=== PATIENT | male | born 1970 | race African-American/Black ===

== ENCOUNTER 2016-12-30 14:39 | Inpatient (IN) | payer OTHER ==
[~2016-12-30] VITALS: Ht 175.3 cm; Wt 79.2 kg
[~2016-12-30 14:39] MED LIST: AMLO10TA4; ASPI-1079; FLUT1DIS3 INH; HYDR25TA; LAMO25TA4 PO; OMEP20CA4; PHEN100C4 PO
[2016-12-30] MEDS ORDERED: IPRATROPIUM BROMIDE (0.02%) 0.5MG/2.5ML NEB HHN STA (15:34)
[2016-12-30] MEDS ORDERED: ALBUTEROL (0.083%) 2.5MG/3ML NEB HHN STA (15:34)
[2016-12-30] MEDS ORDERED: KETOROLAC 30MG/ML VIAL IV STA (15:34)
[2016-12-30] MEDS ORDERED: METHYLPREDNISOLONE SOD SUCC 125 MG/2 ML VIAL IV STA (15:34)
[2016-12-30 16:03] LABS: CHLORIDE 110 mEq/L (98-107)
[2016-12-30 16:05] LABS: INR 1.1
[2016-12-30 16:07] LABS: MEAN CORPUSCULAR HEMOGLOBIN 20.7 pg (28.0-32.0); MEAN CORPUSCULAR VOLUME 69.2 fL (80.0-94.0); PLATELET 258 x1000/uL (130-400); RED CELL DISTRIBUTION WIDTH 20.4 % (11.6-14.6)
[2016-12-30 16:10] LABS: CARBON DIOXIDE 28 mEq/L (21-32)
[2016-12-30 16:15] LABS: HEMATOCRIT. 18.7 % (42.0-52.0); HEMOGLOBIN. 5.6 g/dL (14.0-18.0)
[2016-12-30 17:11] LABS: NUCLEATED RED BLOOD CELLS 1 /100 WBC; PLATELET ESTIMATE NORMAL
[2016-12-30] MEDS ORDERED: ONDANSETRON HCL 4MG/2ML VIAL IV PRN (17:45)
[2016-12-30] MEDS ORDERED: PANTOPRAZOLE 80 MG in SODIUM CHLORIDE 0.9% 100 ML IV SCH (17:45)
[2016-12-30] MEDS ORDERED: DOCUSATE SODIUM 100MG CAPSULE PO PRN (17:45)
[2016-12-30] MEDS ORDERED: LORAZEPAM 2MG/ML CPJ IV PRN (17:45)
[2016-12-30] MEDS ORDERED: IPRATROPIUM/ALBUTEROL 0.5-3(2.5)MG/3ML NEB INH PRN (17:45)
[2016-12-30] MEDS ORDERED: MAGNESIUM/ALUMINUM HYDROXIDE/SIMETHICONE 30ML UDC PO PRN (17:45)
[2016-12-30] MEDS ORDERED: ACETAMINOPHEN 325MG TABLET PO PRN (17:45)
[2016-12-30] MEDS ORDERED: POTASSIUM CHLORIDE 20MEQ TABLET SR PO NR (18:00)
[2016-12-30 18:26] LABS: CHLORIDE 110 mEq/L (98-107)
[2016-12-30 18:28] LABS: BG BASE EXCESS 1.1 mmol/L (-2.0-2.0); BG CARBOXYHEMOGLOBIN 1.6 % (0.5-1.5); BG DEOXYHEMOGLOBIN 5.8 % (0.0-5.0); BG HCO3 ACT 25.8 mmol/L (22.0-26.0); BG METHEMOGLOBIN 0.5 % (0.0-1.5); BG OXYGEN SATURATION 94.1 % (92.0-98.5); BG OXYHEMOGLOBIN 92.1 % (94.0-97.0); BG PCO2 41.9 mmHg (35.0-45.0); BG PH 7.408 (7.350-7.450); BG SAMPLE SITE RIGHT RADIAL; BG TOTAL HEMOGLOBIN 6.3 g/dL (12.0-18.0); BG VENT MODE NASAL CANNULA
[2016-12-30 18:32] LABS: CARBON DIOXIDE 28 mEq/L (21-32); TOTAL IRON BINDING CAPACITY 412 ug/dL (250-450)
[2016-12-30 18:33] LABS: CLARITY URINE CLEAR (CLEAR); COLOR URINE YELLOW (YELLOW); GLUCOSE URINE NEGATIVE (NEGATIVE); KETONES URINE NEGATIVE (NEGATIVE); LEUKOCYTE ESTERASE URINE NEGATIVE (NEGATIVE); NITRITE URINE NEGATIVE (NEGATIVE); OCCULT BLOOD URINE NEGATIVE (NEGATIVE); PH URINE 5.5 (4.5-8.0); PROTEIN URINE NEGATIVE (NEGATIVE); SPECIFIC GRAVITY URINE 1.011 (1.005-1.030); UROBILINOGEN URINE 0.2 E.U./dL (0.2-1.0)
[2016-12-30 18:44] LABS: *AMPHETAMINES SCREEN URINE NEGATIVE (NEGATIVE); *BARBITURATES SCREEN URINE NEGATIVE (NEGATIVE); *BENZODIAZEPINES SCREEN URINE NEGATIVE (NEGATIVE); *COCAINE SCREEN URINE NEGATIVE (NEGATIVE); CANNABINOID URINE SCREEN NEGATIVE (NEGATIVE); METHADONE URINE SCREEN NEGATIVE (NEGATIVE); OPIATES URINE SCREEN NEGATIVE (NEGATIVE); PHENCYCLIDINE URINE SCREEN NEGATIVE (NEGATIVE)
[2016-12-30] MEDS: CLONIDINE 0.1MG TABLET PO PRN (19:41)
[2016-12-30] MEDS ORDERED: ALBUTEROL (0.5%) 2.5MG/0.5ML NEB HHN ONE (21:01)
[2016-12-30] MEDS ORDERED: IPRATROPIUM BROMIDE (0.02%) 0.5MG/2.5ML NEB ONE (21:01)
[2016-12-30] MEDS: PANTOPRAZOLE 80 MG in SODIUM CHLORIDE 0.9% 100 ML IV SCH (21:43)
[2016-12-30 23:13] VITALS: BP 172/107
[2016-12-30] MEDS ORDERED: FERR-63 PO (23:41)
[2016-12-30] MEDS ORDERED: TRAM50TA3 PO (23:42)
[2016-12-30] MEDS ORDERED: TRAMADOL 50MG TABLET PO PRN (23:45)
[2016-12-31] VITALS (23 sets, daily range): BP systolic 147–194; BP diastolic 82–107
[2016-12-31] MEDS: AMLODIPINE 10MG TABLET PO SCH ×2 (00:36→09:00)
[2016-12-31] MEDS: HYDROCHLOROTHIAZIDE 25MG TABLET PO SCH ×2 (00:36→09:00)
[2016-12-31] MEDS: METHYLPREDNISOLONE SOD SUCC 40 MG/ML VIAL IV SCH ×3 (00:36→16:42)
[2016-12-31] MEDS: CLONIDINE 0.1MG TABLET PO PRN (02:14)
[2016-12-31 06:40] LABS: HEMATOCRIT 24.1 % (42.0-52.0); HEMOGLOBIN 7.5 g/dL (14.0-18.0)
[2016-12-31 07:12] LABS: CREATINE KINASE 123 IU/L (39-308); HDL CHOLESTEROL 95 mg/dL (40-59); LDL CHOLESTEROL 41 mg/dL (5-100); TROPONIN I < 0.02 ng/mL (0.00-0.04)
[2016-12-31] MEDS: ALBUTEROL (0.083%) 2.5MG/3ML NEB HHN SCH ×2 (08:28→13:53)
[2016-12-31] MEDS: BUDESONIDE 0.5MG/2ML NEB HHN SCH (08:28)
[2016-12-31] MEDS: LAMOTRIGINE 25MG TABLET PO SCH (08:59)
[2016-12-31] MEDS ORDERED: MEDICATION NOT ON FORMULARY EA (Fluticasone/Salmeterol (Advair 250-50 Diskus) 1 PUFF) INH SCH (09:00)
[2016-12-31] MEDS ORDERED: FERROUS SULFATE 325MG TABLET PO SCH (09:00)
[2016-12-31] MEDS: PANTOPRAZOLE 80 MG in SODIUM CHLORIDE 0.9% 100 ML IV SCH (09:52)
[2016-12-31] MEDS ORDERED: SORBITOL 70% SOLN 30ML PO SCH ×2 (16:00→20:00)
[2016-12-31] MEDS ORDERED: BISACODYL 5MG TABLET PO SCH ×2 (16:00→20:00)
[2016-12-31] MEDS: FERROUS SULFATE 325MG TABLET PO SCH ×2 (16:42→17:50)
[2016-12-31] MEDS: ASCORBIC ACID 500 MG TABLET PO SCH ×2 (16:42→20:17)
[2016-12-31] MEDS ORDERED: POTASSIUM CHLORIDE 20MEQ TABLET SR PO NR (20:00)
[2016-12-31] MEDS: PANTOPRAZOLE SODIUM 40 MG/VIAL IV SCH (20:15)
[2016-12-31] MEDS: PHENYTOIN SODIUM EXTENDED 100MG CAPSULE PO SCH (20:16)
[2016-12-31 20:28] LABS: HEMATOCRIT 26.3 % (42.0-52.0); HEMOGLOBIN 8.3 g/dL (14.0-18.0)
[2016-12-31 20:52] LABS: CREATINE KINASE MB FRACTION 2.4 ng/mL (0.5-3.6); TROPONIN I 0.06 ng/mL (0.00-0.04)
[2017-01-01] VITALS (17 sets, daily range): BP systolic 114–170; BP diastolic 9–121
[2017-01-01 00:16] LABS: HEMATOCRIT 27.1 % (42.0-52.0); HEMOGLOBIN 8.4 g/dL (14.0-18.0)
[2017-01-01] MEDS: METHYLPREDNISOLONE SOD SUCC 40 MG/ML VIAL IV SCH ×3 (00:23→17:49)
[2017-01-01] MEDS: CLONIDINE 0.1MG TABLET PO PRN ×2 (00:32→05:44)
[2017-01-01] MEDS: ALBUTEROL (0.083%) 2.5MG/3ML NEB HHN SCH ×4 (02:23→19:59)
[2017-01-01] MEDS ORDERED: SORBITOL 70% SOLN 30ML PO SCH (06:00)
[2017-01-01 06:36] LABS: INR 1.1; PARTIAL THROMBOPLASTIN TIME 27.7 sec (24.0-34.0); PROTHROMBIN TIME 11.3 sec
[2017-01-01 06:56] LABS: HEMATOCRIT. 30.3 % (42.0-52.0); HEMOGLOBIN. 9.5 g/dL (14.0-18.0); MEAN CORPUSCULAR HEMOGLOBIN 23.8 pg (28.0-32.0); MEAN CORPUSCULAR VOLUME 75.5 fL (80.0-94.0); MEAN PLATELET VOLUME 8.6 fl (7.4-10.4); PLATELET 224 x1000/uL (130-400); RED BLOOD CELL COUNT 4.01 mill/uL (4.7-6.1); RED CELL DISTRIBUTION WIDTH 23.2 % (11.6-14.6)
[2017-01-01] MEDS ORDERED: BACTERIOSTATIC SODIUM CHLORIDE 0.9% 30ML VIAL IJ ONE (09:42)
[2017-01-01] MEDS: BUDESONIDE 0.5MG/2ML NEB HHN SCH ×2 (09:59→20:00)
[2017-01-01] MEDS: ASCORBIC ACID 500 MG TABLET PO SCH ×2 (10:06→20:35)
[2017-01-01] MEDS: HYDROCHLOROTHIAZIDE 25MG TABLET PO SCH (10:06)
[2017-01-01] MEDS: PANTOPRAZOLE SODIUM 40 MG/VIAL IV SCH ×2 (10:06→20:35)
[2017-01-01] MEDS: AMLODIPINE 10MG TABLET PO SCH (10:07)
[2017-01-01] MEDS: LAMOTRIGINE 25MG TABLET PO SCH (10:11)
[2017-01-01 10:44] LABS: NUCLEATED RED BLOOD CELLS 1 /100 WBC; PLATELET ESTIMATE NORMAL
[2017-01-01] MEDS ORDERED: SIMETHICONE 40 MG/0.6 ML 30ML ONE (15:23)
[2017-01-01] MEDS ORDERED: MIDAZOLAM HCL 5 MG/5 ML VIAL ONE (15:24)
[2017-01-01] MEDS ORDERED: FENTANYL CITRATE/PF 50MCG/ML 2ML VIAL ONE (15:24)
[2017-01-01] MEDS ORDERED: FENTANYL CITRATE/PF 50MCG/ML 2ML VIAL IV PRN (15:27)
[2017-01-01] MEDS ORDERED: MIDAZOLAM HCL 5 MG/5 ML VIAL IV PRN (15:27)
[2017-01-01] MEDS ORDERED: DIPHENHYDRAMINE 50MG/ML VIAL ONE (16:25)
[2017-01-01] MEDS: FERROUS SULFATE 325MG TABLET PO SCH (19:10)
[2017-01-01] MEDS: PHENYTOIN SODIUM EXTENDED 100MG CAPSULE PO SCH (20:35)
[2017-01-02] VITALS (11 sets, daily range): BP systolic 134–171; BP diastolic 70–101
[2017-01-02] MEDS: ALBUTEROL (0.083%) 2.5MG/3ML NEB HHN SCH ×3 (01:53→13:54)
[2017-01-02] MEDS: CLONIDINE 0.1MG TABLET PO PRN (06:02)
[2017-01-02 06:58] LABS: HEMATOCRIT. 29.6 % (42.0-52.0); HEMOGLOBIN. 9.3 g/dL (14.0-18.0); MEAN CORPUSCULAR HEMOGLOBIN 23.8 pg (28.0-32.0); MEAN CORPUSCULAR VOLUME 75.6 fL (80.0-94.0); MEAN PLATELET VOLUME 9.2 fl (7.4-10.4); PLATELET 206 x1000/uL (130-400); RED BLOOD CELL COUNT 3.91 mill/uL (4.7-6.1); RED CELL DISTRIBUTION WIDTH 23.6 % (11.6-14.6)
[2017-01-02 07:20] LABS: CARBON DIOXIDE 27 mEq/L (21-32); CHLORIDE 105 mEq/L (98-107)
[2017-01-02] MEDS: BUDESONIDE 0.5MG/2ML NEB HHN SCH (08:07)
[2017-01-02] MEDS: PANTOPRAZOLE SODIUM 40 MG/VIAL IV SCH (08:17)
[2017-01-02] MEDS: ASCORBIC ACID 500 MG TABLET PO SCH (08:18)
[2017-01-02] MEDS: FERROUS SULFATE 325MG TABLET PO SCH ×2 (08:18→13:38)
[2017-01-02] MEDS: LAMOTRIGINE 25MG TABLET PO SCH (08:19)
[2017-01-02] MEDS: AMLODIPINE 10MG TABLET PO SCH (08:19)
[2017-01-02] MEDS: HYDROCHLOROTHIAZIDE 25MG TABLET PO SCH (08:19)
[2017-01-02] MEDS ORDERED: FS300 PO (13:57)
[2017-01-02] MEDS ORDERED: ASCO500T20 PO (13:57)
[2017-01-02 16:06] LABS: PLATELET ESTIMATE NORMAL
== END 2017-01-02 17:20 | disposition home or self-care (01) | DRG 663 ==
LOC: ER 15:01 → 5EST 18:26 → EDBEDREQSVC 20:36 → ENRESERV 21:35
PROVIDERS: ADMIT Internal Medicine; ATTEND Internal Medicine
PROC: 30233N1 Transfusion of Nonautologous Red Blood Cells into Peripheral Vein, Percutaneous Approach (ICD-10-PCS; 2016-12-30)
PROC: 0DB68ZX Excision of Stomach, Via Natural or Artificial Opening Endoscopic, Diagnostic (ICD-10-PCS; 2017-01-01)
PROC: 0DBP8ZZ Excision of Rectum, Via Natural or Artificial Opening Endoscopic (ICD-10-PCS; principal; 2017-01-01 15:00)
DX: D50.9 Iron deficiency anemia, unspecified (principal); I11.9 Hypertensive heart disease without heart failure; J44.1 Chronic obstructive pulmonary disease with (acute) exacerbation; K29.70 Gastritis, unspecified, without bleeding; F10.10 Alcohol abuse, uncomplicated; D12.5 Benign neoplasm of sigmoid colon; F17.200 Nicotine dependence, unspecified, uncomplicated; K57.30 Diverticulosis of large intestine without perforation or abscess without bleeding; Q27.33 Arteriovenous malformation of digestive system vessel; Z79.51 Long term (current) use of inhaled steroids; Z79.899 Other long term (current) drug therapy
CPT/HCPCS: 36415; 36600; 71010; 76700; 80048; 80053; 80061; 80305; 81003; 82270; 82375; 82550; 82553; 82728; 82805; 83540; 83550; 83735; 84443; 84484; 85014; 85018; 85025; 85044; 85610; 85730; 86677; 86850; 86900; 86920; 88305; 88312; 88313; 93005; 93970; 94640; 96374; 96375; 99291; C9113; G0482; J1200; J1885; J2250; J2405; J2920; J2930; J3010; J3490; J7050; J7611; J7620; J7626; P9016

== ENCOUNTER 2017-12-07 01:37 | Emergency (ER) | payer OTHER ==
[~2017-12-07] VITALS: Ht 172.7 cm; Wt 73.0 kg
[~2017-12-07 01:37] MED LIST changes: -AMLO10TA4; +AMLO10TA4 PO; +ASCO500T20 PO; -ASPI-1079; +ASPI-1079 PO; +FERR325T23 PO; -FLUT1DIS3 INH; +MOME13HF2 INH; +OMEP20CA10 PO; -OMEP20CA4; +TRAM50TA3 PO
[2017-12-07 01:56] VITALS: BP 146/70
== END 2017-12-07 03:30 | disposition left against medical advice (07) ==
LOC: ER 01:37
DX: R53.1 Weakness (principal); Z53.21 Procedure and treatment not carried out due to patient leaving prior to being seen by health care provider

== ENCOUNTER 2019-02-03 14:28 | Inpatient (IN) | payer OTHER ==
[~2019-02-03] VITALS: Ht 175.3 cm; Wt 76.7 kg
[~2019-02-03 14:28] MED LIST changes: +ALBU18HF2 IH; -LAMO25TA4 PO; +LAMO25TA9 PO; -OMEP20CA10 PO; +OMEP20CA5 PO
[2019-02-03] MEDS ORDERED: SODIUM CHLORIDE 0.9% 1,000 ML IV ONE (15:22)
[2019-02-03 16:00] LABS: BASOPHILS % 2.5 % (0.0-2.0); EOSINOPHILS % 0.4 % (0.0-5.0); HEMATOCRIT. 23.1 % (42.0-52.0); LYMPHOCYTES % 8.1 % (20.0-50.0); MEAN CORPUSCULAR HEMOGLOBIN 21.6 pg (28.0-32.0); MEAN CORPUSCULAR VOLUME 72.6 fL (80.0-94.0); MEAN PLATELET VOLUME 8.3 fl (7.4-10.4); MONOCYTES % 13.5 % (2.0-8.0); NEUTROPHILS % 75.5 % (40.0-76.0); PLATELET 206 x1000/uL (130-400); RED BLOOD CELL COUNT 3.19 mill/uL (4.7-6.1); RED CELL DISTRIBUTION WIDTH 27.1 % (11.6-14.6)
[2019-02-03 16:03] LABS: CHLORIDE 106 mEq/L (98-107)
[2019-02-03 16:06] LABS: HEMOGLOBIN. 6.9 g/dL (14.0-18.0)
[2019-02-03 16:07] LABS: ETHANOL BLOOD 16 mg/dL
[2019-02-03 16:20] LABS: PLATELET ESTIMATE NORMAL
[2019-02-03] MEDS ORDERED: PHENYTOIN SODIUM EXTENDED 100MG CAPSULE PO ONE ×2 (17:00)
[2019-02-03 17:43] LABS: CLARITY URINE CLEAR (CLEAR); COLOR URINE YELLOW (YELLOW); KETONES URINE NEGATIVE (NEGATIVE); LEUKOCYTE ESTERASE URINE NEGATIVE (NEGATIVE); NITRITE URINE NEGATIVE (NEGATIVE); OCCULT BLOOD URINE NEGATIVE (NEGATIVE); PROTEIN URINE NEGATIVE (NEGATIVE); SPECIFIC GRAVITY URINE 1.015 (1.005-1.030)
[2019-02-03 17:50] LABS: *AMPHETAMINES SCREEN URINE NEGATIVE (NEGATIVE)
[2019-02-03 17:51] LABS: *BARBITURATES SCREEN URINE NEGATIVE (NEGATIVE); *BENZODIAZEPINES SCREEN URINE NEGATIVE (NEGATIVE); *COCAINE SCREEN URINE NEGATIVE (NEGATIVE); METHADONE URINE SCREEN NEGATIVE (NEGATIVE); OPIATES URINE SCREEN NEGATIVE (NEGATIVE); PHENCYCLIDINE URINE SCREEN NEGATIVE (NEGATIVE)
[2019-02-03 17:52] LABS: CANNABINOID URINE SCREEN NEGATIVE (NEGATIVE)
[2019-02-03 21:15] VITALS: BP 182/94
[2019-02-04] MEDS ORDERED: MORPHINE SULFATE 4 MG/ML CPJ (NOT FOR IM USE) IV PRN (00:45)
[2019-02-04] MEDS ORDERED: CLONIDINE 0.1MG TABLET PO PRN (00:45)
[2019-02-04] MEDS: IPRATROPIUM/ALBUTEROL 0.5-3(2.5)MG/3ML NEB HHN SCH ×5 (02:20→21:00)
[2019-02-04 04:00] VITALS: BP 170/91
[2019-02-04 08:00] VITALS: BP 148/88
[2019-02-04] MEDS: LAMOTRIGINE 25MG TABLET PO SCH (09:06)
[2019-02-04] MEDS: AMLODIPINE 10MG TABLET PO SCH (09:07)
[2019-02-04] MEDS: OMEPRAZOLE 20MG CAPSULE EXTENDED RELEASE PO SCH (09:07)
[2019-02-04] MEDS: LOSARTAN POTASSIUM 50 MG TABLET PO SCH (09:12)
[2019-02-04 10:20] LABS: BASOPHILS % 2.9 % (0.0-2.0); EOSINOPHILS % 1.1 % (0.0-5.0); HEMATOCRIT. 27.4 % (42.0-52.0); HEMOGLOBIN. 8.3 g/dL (14.0-18.0); LYMPHOCYTES % 21.4 % (20.0-50.0); MEAN CORPUSCULAR HEMOGLOBIN 22.3 pg (28.0-32.0); MEAN PLATELET VOLUME 8.8 fl (7.4-10.4); MONOCYTES % 11.4 % (2.0-8.0); NEUTROPHILS % 63.2 % (40.0-76.0); PLATELET 220 x1000/uL (130-400); RED CELL DISTRIBUTION WIDTH 27.3 % (11.6-14.6)
[2019-02-04 10:35] LABS: CHLORIDE 105 mEq/L (98-107)
[2019-02-04 10:51] LABS: TOTAL IRON BINDING CAPACITY 448 ug/dL (250-450)
[2019-02-04] MEDS ORDERED: LORAZEPAM 2MG/ML CPJ IV PRN (12:00)
[2019-02-04 12:10] VITALS: BP 148/88
[2019-02-04 16:23] VITALS: BP 124/82
[2019-02-04 20:00] VITALS: BP_SYST 133; BP_SYST 135; BP_SYST 139; BP_DIAS 85; BP_DIAS 86
[2019-02-04] MEDS ORDERED: PHENYTOIN SODIUM EXTENDED 100MG CAPSULE PO SCH (21:00)
[2019-02-05] VITALS: BP 133/81
[2019-02-05] MEDS: IPRATROPIUM/ALBUTEROL 0.5-3(2.5)MG/3ML NEB HHN SCH ×4 (00:09→12:00)
[2019-02-05 04:00] VITALS: BP 152/97
[2019-02-05 06:06] LABS: CHLORIDE 109 mEq/L (98-107)
[2019-02-05 06:25] LABS: HEMATOCRIT. 24.4 % (42.0-52.0); HEMOGLOBIN. 7.4 g/dL (14.0-18.0); MEAN CORPUSCULAR HEMOGLOBIN 22.3 pg (28.0-32.0); MEAN CORPUSCULAR VOLUME 73.8 fL (80.0-94.0); MEAN PLATELET VOLUME 8.7 fl (7.4-10.4); PLATELET 196 x1000/uL (130-400); RED BLOOD CELL COUNT 3.31 mill/uL (4.7-6.1); RED CELL DISTRIBUTION WIDTH 27.5 % (11.6-14.6)
[2019-02-05 08:11] VITALS: BP 150/88
[2019-02-05] MEDS: LOSARTAN POTASSIUM 50 MG TABLET PO SCH (08:18)
[2019-02-05] MEDS: LAMOTRIGINE 25MG TABLET PO SCH (08:18)
[2019-02-05] MEDS: AMLODIPINE 10MG TABLET PO SCH (08:19)
[2019-02-05] MEDS: OMEPRAZOLE 20MG CAPSULE EXTENDED RELEASE PO SCH (08:19)
[2019-02-05 12:21] VITALS: BP 138/82
[2019-02-05] MEDS ORDERED: FERROUS SULFATE 325MG TABLET PO SCH (12:50)
[2019-02-05 13:03] VITALS: BP 138/82
[2019-02-05 14:04] LABS: PLATELET ESTIMATE NORMAL
== END 2019-02-05 15:15 | disposition home or self-care (01) | DRG 48 ==
LOC: ER 14:28 → 6WST 17:10 → ENRESERV 19:50 → 6WST 02-04 06:39
PROVIDERS: ADMIT Internal Medicine; ATTEND Internal Medicine
PROC: 30233N1 Transfusion of Nonautologous Red Blood Cells into Peripheral Vein, Percutaneous Approach (ICD-10-PCS; principal; 2019-02-03)
DX: G90.8 Other disorders of autonomic nervous system (principal); I11.9 Hypertensive heart disease without heart failure; D64.9 Anemia, unspecified; F17.210 Nicotine dependence, cigarettes, uncomplicated; G40.909 Epilepsy, unspecified, not intractable, without status epilepticus; G43.909 Migraine, unspecified, not intractable, without status migrainosus; K27.9 Peptic ulcer, site unspecified, unspecified as acute or chronic, without hemorrhage or perforation; J44.9 Chronic obstructive pulmonary disease, unspecified; K80.20 Calculus of gallbladder without cholecystitis without obstruction; Z79.899 Other long term (current) drug therapy
CPT/HCPCS: 36415; 71045; 80048; 80185; 80305; 80320; 82270; 82728; 83540; 83550; 86850; 86900; 86920; 93005; 93306; 94640; 96360; 96361; 97162; 99291; J7030; J7050; J7620; P9016; G0480

== ENCOUNTER 2020-03-20 08:07 | Inpatient (IN) | payer OTHER ==
[~2020-03-20] VITALS: Ht 175.3 cm; Wt 68.9 kg
[~2020-03-20 08:07] MED LIST changes: -ASPI-1079 PO; +DOCU250C14 MT; +FERR325T6 MT; +FURO-152 MT; +HYDR100T26 MT; +IPRA3AMP9 NEB; +LEVO500T2 MT; +LOSA50TA3 PO; +MOME13HF INH; +OMEP20CA14 PO; -OMEP20CA5 PO; -TRAM50TA3 PO
[2020-03-20] MEDS ORDERED: PANTOPRAZOLE SODIUM 40 MG/VIAL IV STA (09:23)
[2020-03-20] MEDS ORDERED: SODIUM CHLORIDE 0.9% 1,000 ML IV ONE (09:23)
[2020-03-20 09:54] LABS: BASOPHILS % 1.7 % (0.0-2.0); EOSINOPHILS % 0.2 % (0.0-5.0); LYMPHOCYTES % 18.3 % (20.0-50.0); MEAN CORPUSCULAR HEMOGLOBIN 25.1 pg (28.0-32.0); MEAN CORPUSCULAR VOLUME 81.2 fL (80.0-94.0); MEAN PLATELET VOLUME 9.1 fl (7.4-10.4); MONOCYTES % 12.7 % (2.0-8.0); NEUTROPHILS % 67.1 % (40.0-76.0); PLATELET 129 x1000/uL (130-400); RED BLOOD CELL COUNT 1.91 mill/uL (4.7-6.1); RED CELL DISTRIBUTION WIDTH 22.6 % (11.6-14.6)
[2020-03-20 09:58] LABS: CHLORIDE 109 mEq/L (98-107)
[2020-03-20 10:02] LABS: HEMATOCRIT. 15.5 % (42.0-52.0); HEMOGLOBIN. 4.8 g/dL (14.0-18.0)
[2020-03-20 10:04] LABS: INR 1.3; PROTHROMBIN TIME 13.4 sec (9.6-11.0)
[2020-03-20 10:34] LABS: PLATELET ESTIMATE SLIGHTLY DECREASED
[2020-03-20] MEDS ORDERED: ACETAMINOPHEN 325MG TABLET PO PRN (12:00)
[2020-03-20] MEDS ORDERED: ONDANSETRON HCL 4MG/2ML INJ IV PRN (12:00)
[2020-03-20 12:01] LABS: CLARITY URINE CLEAR (CLEAR); COLOR URINE YELLOW (YELLOW); KETONES URINE NEGATIVE (NEGATIVE); LEUKOCYTE ESTERASE URINE NEGATIVE (NEGATIVE); NITRITE URINE NEGATIVE (NEGATIVE); OCCULT BLOOD URINE NEGATIVE (NEGATIVE); PROTEIN URINE 1+ (NEGATIVE); SPECIFIC GRAVITY URINE 1.016 (1.005-1.030)
[2020-03-20] MEDS: AMLODIPINE 10MG TABLET PO SCH (13:09)
[2020-03-20 14:42] LABS: MEAN CORPUSCULAR HEMOGLOBIN 26.6 pg (28.0-32.0); MEAN CORPUSCULAR VOLUME 81.8 fL (80.0-94.0); MEAN PLATELET VOLUME 8.5 fl (7.4-10.4); PLATELET 99 x1000/uL (130-400); RED BLOOD CELL COUNT 2.44 mill/uL (4.7-6.1); RED CELL DISTRIBUTION WIDTH 20.1 % (11.6-14.6)
[2020-03-20 14:46] LABS: CHLORIDE 110 mEq/L (98-107)
[2020-03-20 14:47] LABS: HEMOGLOBIN. 6.5 g/dL (14.0-18.0)
[2020-03-20 14:54] LABS: TOTAL IRON BINDING CAPACITY 279 ug/dL (250-450)
[2020-03-20 15:00] LABS: PLATELET ESTIMATE SLIGHTLY DECREASED
[2020-03-20 15:25] LABS: FOLIC ACID (FOLATE) SERUM 5.1 ng/mL (>5.38)
[2020-03-20] MEDS ORDERED: CLONIDINE 0.1MG TABLET PO PRN ×2 (15:30→22:15)
[2020-03-20 16:42] VITALS: BP 196/99
[2020-03-20 17:32] VITALS: BP 196/99
[2020-03-20] MEDS: LOSARTAN POTASSIUM 100 MG TABLET PO SCH (18:33)
[2020-03-20 21:08] VITALS: BP 183/102
[2020-03-20 21:22] LABS: HEMATOCRIT 24.2 % (42.0-52.0)
[2020-03-21] MEDS ORDERED: IPRATROPIUM/ALBUTEROL 0.5-3(2.5)MG/3ML NEB HHN PRN (01:45)
[2020-03-21 04:00] VITALS: BP 136/89
[2020-03-21] MEDS ORDERED: IPRATROPIUM/ALBUTEROL 0.5-3(2.5)MG/3ML NEB HHN SCH (04:00)
[2020-03-21 05:56] LABS: BASOPHILS % 1.2 % (0.0-2.0); EOSINOPHILS % 1.4 % (0.0-5.0); LYMPHOCYTES % 24.2 % (20.0-50.0); MEAN CORPUSCULAR VOLUME 83.1 fL (80.0-94.0); MONOCYTES % 12.3 % (2.0-8.0); NEUTROPHILS % 60.9 % (40.0-76.0); PLATELET 95 x1000/uL (130-400); RED CELL DISTRIBUTION WIDTH 20.1 % (11.6-14.6)
[2020-03-21 06:13] LABS: CHLORIDE 107 mEq/L (98-107)
[2020-03-21 06:33] LABS: HEMATOCRIT. 20.8 % (42.0-52.0)
[2020-03-21 08:00] VITALS: BP 152/85
[2020-03-21] MEDS ORDERED: POTASSIUM CHLORIDE 20MEQ TABLET SR PO SCH (08:30)
[2020-03-21] MEDS: FUROSEMIDE 40MG TABLET PO SCH (08:59)
[2020-03-21] MEDS: PANTOPRAZOLE SODIUM 40 MG/VIAL IV SCH (08:59)
[2020-03-21] MEDS: LOSARTAN POTASSIUM 100 MG TABLET PO SCH (09:00)
[2020-03-21] MEDS: AMLODIPINE 10MG TABLET PO SCH (09:00)
[2020-03-21 11:12] LABS: HEMATOCRIT 24.6 % (42.0-52.0); HEMOGLOBIN 8.2 g/dL (14.0-18.0)
[2020-03-21 12:00] VITALS: BP 130/87
[2020-03-21 16:00] VITALS: BP 130/87
[2020-03-21 20:00] VITALS: BP 146/90
[2020-03-22] VITALS: BP 156/94
[2020-03-22 04:00] VITALS: BP 153/93
[2020-03-22 08:00] VITALS: BP 142/94
[2020-03-22] MEDS: FUROSEMIDE 40MG TABLET PO SCH (09:00)
[2020-03-22 09:24] LABS: HEMATOCRIT 23.2 % (42.0-52.0); HEMOGLOBIN 7.8 g/dL (14.0-18.0)
[2020-03-22] MEDS: PANTOPRAZOLE SODIUM 40 MG/VIAL IV SCH (10:40)
[2020-03-22] MEDS: AMLODIPINE 10MG TABLET PO SCH (10:40)
[2020-03-22] MEDS: LOSARTAN POTASSIUM 100 MG TABLET PO SCH (10:40)
[2020-03-22 12:00] VITALS: BP 145/89
[2020-03-22 13:08] LABS: CHLORIDE 103 mEq/L (98-107)
[2020-03-22 13:15] LABS: BASOPHILS % 1.1 % (0.0-2.0); EOSINOPHILS % 2.2 % (0.0-5.0); MEAN CORPUSCULAR HEMOGLOBIN 27.6 pg (28.0-32.0); MEAN CORPUSCULAR VOLUME 83.7 fL (80.0-94.0); MEAN PLATELET VOLUME 8.9 fl (7.4-10.4); MONOCYTES % 11.8 % (2.0-8.0); NEUTROPHILS % 57.9 % (40.0-76.0); PLATELET 105 x1000/uL (130-400); RED BLOOD CELL COUNT 2.95 mill/uL (4.7-6.1); RED CELL DISTRIBUTION WIDTH 20.5 % (11.6-14.6)
[2020-03-22 13:17] LABS: PHOSPHORUS 2.2 mg/dL (2.5-4.9)
[2020-03-22 13:18] LABS: HEMATOCRIT. 24.7 % (42.0-52.0); HEMOGLOBIN. 8.1 g/dL (14.0-18.0)
[2020-03-22] MEDS ORDERED: POTASSIUM CHLORIDE 20MEQ TABLET SR PO NR (13:30)
== END 2020-03-22 14:15 | disposition short-term general hospital (02) | DRG 254 ==
LOC: ER 08:13 → 8WST 11:36 → EDBEDREQSVC 11:45 → EDBEDREQ 11:45 → EDBEDREQSVC 13:22 → ENRESERV 15:45
PROVIDERS: ADMIT Internal Medicine; ATTEND Internal Medicine
PROC: 30233N1 Transfusion of Nonautologous Red Blood Cells into Peripheral Vein, Percutaneous Approach (ICD-10-PCS; principal; 2020-03-20)
DX: K92.1 Melena (principal); I11.0 Hypertensive heart disease with heart failure; I50.33 Acute on chronic diastolic (congestive) heart failure; J44.9 Chronic obstructive pulmonary disease, unspecified; D61.818 Other pancytopenia; G40.909 Epilepsy, unspecified, not intractable, without status epilepticus; R74.0 Nonspecific elevation of levels of transaminase and lactic acid dehydrogenase [LDH]; F17.210 Nicotine dependence, cigarettes, uncomplicated; K76.0 Fatty (change of) liver, not elsewhere classified; Z87.19 Personal history of other diseases of the digestive system; Z79.2 Long term (current) use of antibiotics; Z79.899 Other long term (current) drug therapy; Z71.6 Tobacco abuse counseling; R65.10 Systemic inflammatory response syndrome (SIRS) of non-infectious origin without acute organ dysfunction; E43 Unspecified severe protein-calorie malnutrition
CPT/HCPCS: 36415; 71045; 76700; 80048; 80053; 81003; 82270; 82607; 82728; 82746; 83540; 83550; 83605; 83735; 84100; 84145; 84484; 85014; 85018; 85025; 86850; 86900; 86920; 93005; 94640; 99291; C9113; J7030; P9016

== ENCOUNTER 2021-02-14 18:15 | Inpatient (IN) | payer OTHER ==
[~2021-02-14] VITALS: Ht 175.3 cm; Wt 65.8 kg
[~2021-02-14 18:15] MED LIST changes: +FURO-151 MT; -HYDR25TA; -LEVO500T2 MT
[2021-02-14] MEDS ORDERED: ACETAMINOPHEN 325MG TABLET PO STA (18:54)
[2021-02-14] MEDS ORDERED: SODIUM CHLORIDE 0.9% 1,000 ML IV ONE (19:00)
[2021-02-14 19:30] LABS: MEAN CORPUSCULAR HEMOGLOBIN 18.1 pg (28.0-32.0); MEAN CORPUSCULAR VOLUME 62.1 fL (80.0-94.0); MEAN PLATELET VOLUME 7.5 fl (7.4-10.4); PLATELET 229 x1000/uL (130-400); RED BLOOD CELL COUNT 2.54 mill/uL (4.7-6.1); RED CELL DISTRIBUTION WIDTH 21.4 % (11.6-14.6)
[2021-02-14 19:39] LABS: CHLORIDE 104 mEq/L (98-107)
[2021-02-14 19:43] LABS: ETHANOL BLOOD 69 mg/dL
[2021-02-14 19:44] LABS: HEMATOCRIT. 15.7 % (42.0-52.0); HEMOGLOBIN. 4.6 g/dL (14.0-18.0)
[2021-02-14 20:14] LABS: PLATELET ESTIMATE NORMAL
[2021-02-14 20:52] LABS: CLARITY URINE CLEAR (CLEAR); COLOR URINE YELLOW (YELLOW); KETONES URINE TRACE (NEGATIVE); LEUKOCYTE ESTERASE URINE NEGATIVE (NEGATIVE); NITRITE URINE NEGATIVE (NEGATIVE); OCCULT BLOOD URINE NEGATIVE (NEGATIVE); PROTEIN URINE TRACE (NEGATIVE); SPECIFIC GRAVITY URINE 1.015 (1.005-1.030)
[2021-02-14 21:09] LABS: *AMPHETAMINES SCREEN URINE NEGATIVE (NEGATIVE); *BARBITURATES SCREEN URINE NEGATIVE (NEGATIVE); *BENZODIAZEPINES SCREEN URINE NEGATIVE (NEGATIVE); *COCAINE SCREEN URINE PRESUMTIVE POSITIVE (NEGATIVE)
[2021-02-14 21:10] LABS: CANNABINOID URINE SCREEN NEGATIVE (NEGATIVE); METHADONE URINE SCREEN NEGATIVE (NEGATIVE); OPIATES URINE SCREEN NEGATIVE (NEGATIVE); PHENCYCLIDINE URINE SCREEN NEGATIVE (NEGATIVE)
[2021-02-14] MEDS ORDERED: DIPHENHYDRAMINE 50MG/ML VIAL IV PRN (23:30)
[2021-02-14] MEDS ORDERED: ACETAMINOPHEN 325MG TABLET PO PRN ×2 (23:30)
[2021-02-14] MEDS ORDERED: GUAIFENESIN 200MG/10ML SUGAR FREE UDC PO PRN (23:30)
[2021-02-14] MEDS ORDERED: ZOLPIDEM TARTRATE 5MG TABLET PO PRN (23:30)
[2021-02-14] MEDS ORDERED: CLONIDINE 0.1MG TABLET PO PRN (23:30)
[2021-02-14] MEDS ORDERED: LORAZEPAM 2MG/ML CPJ IV PRN (23:30)
[2021-02-14] MEDS ORDERED: MAGNESIUM/ALUMINUM HYDROXIDE/SIMETHICONE 30ML UDC PO PRN (23:30)
[2021-02-14 23:57] LABS: TOTAL IRON BINDING CAPACITY 471 ug/dL (250-450)
[2021-02-15] MEDS: SODIUM CHLORIDE 0.9% 1,000 ML IV SCH ×2 (00:30→18:33)
[2021-02-15] MEDS: PHENYTOIN SODIUM EXTENDED 100MG CAPSULE PO SCH ×3 (07:01→21:32)
[2021-02-15] MEDS: OMEPRAZOLE 20MG CAPSULE EXTENDED RELEASE PO SCH ×2 (07:01→21:33)
[2021-02-15 07:18] LABS: MEAN CORPUSCULAR HEMOGLOBIN 20.5 pg (28.0-32.0); MEAN CORPUSCULAR VOLUME 67.1 fL (80.0-94.0); MEAN PLATELET VOLUME 8.5 fl (7.4-10.4); PLATELET 196 x1000/uL (130-400); RED BLOOD CELL COUNT 3.04 mill/uL (4.7-6.1); RED CELL DISTRIBUTION WIDTH 24.7 % (11.6-14.6)
[2021-02-15 07:42] LABS: HEMATOCRIT. 20.4 % (42.0-52.0)
[2021-02-15 07:43] LABS: HEMOGLOBIN. 6.2 g/dL (14.0-18.0)
[2021-02-15 10:00] VITALS: BP 160/80
[2021-02-15] MEDS: LAMOTRIGINE 25MG TABLET PO SCH (10:35)
[2021-02-15 10:40] LABS: PLATELET ESTIMATE NORMAL
[2021-02-15 12:17] LABS: HEMATOCRIT 25.3 % (42.0-52.0); HEMOGLOBIN 7.8 g/dL (14.0-18.0)
[2021-02-15] MEDS: IRON SUCROSE COMPLEX 100 MG/5 ML ML IV SCH (15:04)
[2021-02-15 20:00] VITALS: BP 168/81
[2021-02-15] MEDS: BUDESONIDE 0.5MG/2ML NEB HHN SCH (22:50)
[2021-02-15] MEDS: IPRATROPIUM/ALBUTEROL 0.5-3(2.5)MG/3ML NEB HHN PRN (22:50)
[2021-02-16] VITALS (8 sets, daily range): BP systolic 130–155; BP diastolic 72–89
[2021-02-16] MEDS: PHENYTOIN SODIUM EXTENDED 100MG CAPSULE PO SCH ×2 (06:23→14:24)
[2021-02-16] MEDS: OMEPRAZOLE 20MG CAPSULE EXTENDED RELEASE PO SCH (06:23)
[2021-02-16 07:29] LABS: HEMOGLOBIN 7.1 g/dL (14.0-18.0); MEAN CORPUSCULAR HEMOGLOBIN 21.3 pg (28.0-32.0); MEAN CORPUSCULAR VOLUME 69.4 fL (80.0-94.0); PLATELET 157 x1000/uL (130-400); RED BLOOD CELL COUNT 3.32 mill/uL (4.7-6.1); RED CELL DISTRIBUTION WIDTH 26.8 % (11.6-14.6)
[2021-02-16] MEDS: LAMOTRIGINE 25MG TABLET PO SCH (08:51)
[2021-02-16] MEDS: IRON SUCROSE COMPLEX 100 MG/5 ML ML IV SCH (08:51)
[2021-02-16] MEDS: IPRATROPIUM/ALBUTEROL 0.5-3(2.5)MG/3ML NEB HHN PRN (09:19)
[2021-02-16] MEDS: BUDESONIDE 0.5MG/2ML NEB HHN SCH (09:19)
[2021-02-16] MEDS: SODIUM CHLORIDE 0.9% 1,000 ML IV SCH (14:24)
[2021-02-16 16:44] LABS: HEMATOCRIT 27.8 % (42.0-52.0); HEMOGLOBIN 9.1 g/dL (14.0-18.0)
== END 2021-02-16 17:25 | disposition home or self-care (01) | DRG 663 ==
LOC: ER 18:15 → MICUSO 23:02 → 6EST 02-15 09:23
PROVIDERS: ADMIT Internal Medicine; ATTEND Internal Medicine
PROC: 30233N1 Transfusion of Nonautologous Red Blood Cells into Peripheral Vein, Percutaneous Approach (ICD-10-PCS; principal; 2021-02-14)
DX: D64.9 Anemia, unspecified (principal); G93.40 Encephalopathy, unspecified; G40.909 Epilepsy, unspecified, not intractable, without status epilepticus; I10 Essential (primary) hypertension; J44.9 Chronic obstructive pulmonary disease, unspecified; Z20.822 Contact with and (suspected) exposure to COVID-19; Z79.899 Other long term (current) drug therapy
CPT/HCPCS: 36415; 71045; 80053; 80305; 80320; 81003; 82962; 83540; 83550; 83880; 84484; 85014; 85018; 85025; 85027; 86850; 86900; 86920; 87426; 93005; 94640; 99291; J7030; J7040; J7626; P9016; G0480

== ENCOUNTER 2022-06-15 18:22 | Inpatient (IN) | payer MEDICAID, OTHER ==
[~2022-06-15] VITALS: Ht 175.3 cm; Wt 83.9 kg
[~2022-06-15 18:22] MED LIST changes: -FERR325T6 MT; -FURO-152 MT; -MOME13HF INH; +MOME13HF11 INH
[2022-06-15 20:03] LABS: MEAN CORPUSCULAR HEMOGLOBIN 20.1 pg (28.0-32.0); MEAN CORPUSCULAR VOLUME 71.9 fL (80.0-94.0); MEAN PLATELET VOLUME 9.4 fl (7.4-10.4); PLATELET 144 x1000/uL (130-400); RED BLOOD CELL COUNT 2.35 mill/uL (4.7-6.1); RED CELL DISTRIBUTION WIDTH 19.8 % (11.6-14.6)
[2022-06-15 20:11] LABS: INR 1.2; PROTHROMBIN TIME 12.9 sec (9.6-11.0)
[2022-06-15 20:14] LABS: HEMATOCRIT. 16.9 % (42.0-52.0); HEMOGLOBIN. 4.7 g/dL (14.0-18.0)
[2022-06-15 20:17] LABS: CHLORIDE 107 mEq/L (98-107)
[2022-06-15 22:58] LABS: PLATELET ESTIMATE NORMAL
[2022-06-15] MEDS ORDERED: PANTOPRAZOLE SODIUM 40 MG/VIAL IV STA (22:58)
[2022-06-15] MEDS ORDERED: IOHEXOL-300 100 ML BOTTLE ONE (23:05)
[2022-06-16] MEDS ORDERED: PANTOPRAZOLE SODIUM 40 MG/VIAL IV NR (02:00)
[2022-06-16] MEDS ORDERED: ONDANSETRON HCL 4MG/2ML INJ IV PRN (11:00)
[2022-06-16] MEDS ORDERED: CLONIDINE 0.1MG TABLET PO PRN (11:00)
[2022-06-16] MEDS ORDERED: SODIUM CHLORIDE 0.9% 1,000 ML IV SCH (11:00)
[2022-06-16] MEDS ORDERED: MEDICATION NOT ON FORMULARY EA (Mometasone/Formoterol (Dulera 100 Mcg/5 Mcg Inhaler) 2 P INH SCH (11:15)
[2022-06-16] MEDS: AMLODIPINE 10MG TABLET PO SCH (11:27)
[2022-06-16] MEDS: LAMOTRIGINE 25MG TABLET PO SCH (11:27)
[2022-06-16] MEDS: LOSARTAN POTASSIUM 50 MG TABLET PO SCH (11:27)
[2022-06-16] MEDS: PANTOPRAZOLE SODIUM 40 MG/VIAL IV SCH (11:28)
[2022-06-16] MEDS: ASCORBIC ACID 500 MG TABLET PO SCH ×2 (11:30→20:45)
[2022-06-16] MEDS ORDERED: POTASSIUM CHLORIDE INJ 40 MEQ in DEXT 5% WATER 250 ML IV NR ×2 (12:00→23:00)
[2022-06-16] MEDS: DEXT 5%/0.9% NACL 1,000 ML IV SCH (12:10)
[2022-06-16] MEDS ORDERED: IPRATROPIUM/ALBUTEROL 0.5-3(2.5)MG/3ML NEB NEB SCH (17:00)
[2022-06-16 17:15] VITALS: BP 151/75
[2022-06-16 17:45] VITALS: BP 151/75
[2022-06-16] MEDS: HYDRALAZINE HCL 100MG TABLET PO SCH (18:00)
[2022-06-16] MEDS: FERROUS SULFATE 325MG TABLET PO SCH (18:01)
[2022-06-16 20:23] LABS: MEAN CORPUSCULAR HEMOGLOBIN 21.3 pg (28.0-32.0); MEAN CORPUSCULAR VOLUME 70.8 fL (80.0-94.0); PLATELET 123 x1000/uL (130-400); RED BLOOD CELL COUNT 2.52 mill/uL (4.7-6.1); RED CELL DISTRIBUTION WIDTH 18.9 % (11.6-14.6)
[2022-06-16 20:33] LABS: CHLORIDE 108 mEq/L (98-107)
[2022-06-16 20:41] LABS: TOTAL IRON BINDING CAPACITY 299 ug/dL (250-450)
[2022-06-16 20:42] LABS: HEMATOCRIT. 17.8 % (42.0-52.0); HEMOGLOBIN. 5.4 g/dL (14.0-18.0)
[2022-06-16] MEDS: PHENYTOIN SODIUM EXTENDED 100MG CAPSULE PO SCH (20:45)
[2022-06-16 20:59] LABS: FERRITIN 9 ng/mL (22-322)
[2022-06-16 21:00] VITALS: BP 145/92
[2022-06-16 21:10] LABS: HEPATITIS B SURFACE ANTIGEN NEGATIVE
[2022-06-16] MEDS: BUDESONIDE 0.5MG/2ML NEB HHN SCH (21:25)
[2022-06-16] MEDS: ALBUTEROL (0.083%) 2.5MG/3ML NEB HHN SCH (21:25)
[2022-06-16 22:02] VITALS: BP 128/64
[2022-06-16 22:17] VITALS: BP 132/62
[2022-06-16 22:39] LABS: VITAMIN B12 SERUM 1049 pg/mL (211-911)
[2022-06-16 23:17] VITALS: BP 135/70
[2022-06-16 23:42] LABS: PLATELET ESTIMATE SLIGHTLY DECREASED
[2022-06-17] VITALS (12 sets, daily range): BP systolic 97–175; BP diastolic 54–88
[2022-06-17] MEDS: DEXT 5%/0.9% NACL 1,000 ML IV SCH ×2 (00:35→13:55)
[2022-06-17 01:20] LABS: HEMATOCRIT 21.5 % (42.0-52.0)
[2022-06-17 01:24] LABS: HEMOGLOBIN 6.6 g/dL (14.0-18.0)
[2022-06-17] MEDS: ALBUTEROL (0.083%) 2.5MG/3ML NEB HHN SCH ×4 (01:30→21:11)
[2022-06-17] MEDS: FERROUS SULFATE 325MG TABLET PO SCH ×3 (06:59→16:57)
[2022-06-17] MEDS: BUDESONIDE 0.5MG/2ML NEB HHN SCH ×2 (07:34→21:10)
[2022-06-17] MEDS: HYDRALAZINE HCL 100MG TABLET PO SCH ×2 (10:08→16:58)
[2022-06-17] MEDS: LAMOTRIGINE 25MG TABLET PO SCH (10:09)
[2022-06-17] MEDS: ASCORBIC ACID 500 MG TABLET PO SCH ×2 (10:09→21:00)
[2022-06-17] MEDS: DOCUSATE SODIUM 250MG CAPSULE PO SCH ×2 (10:09→16:58)
[2022-06-17] MEDS: AMLODIPINE 10MG TABLET PO SCH (10:09)
[2022-06-17] MEDS: LOSARTAN POTASSIUM 50 MG TABLET PO SCH (10:09)
[2022-06-17] MEDS: PANTOPRAZOLE SODIUM 40 MG/VIAL IV SCH (10:12)
[2022-06-17] MEDS: PIPERACILLIN/TAZOBACTAM 3.375 G in DEXTROSE 5% WATER 50 ML IV SCH ×3 (10:23→21:52)
[2022-06-17 10:50] LABS: HEMATOCRIT. 27.1 % (42.0-52.0); HEMOGLOBIN. 8.8 g/dL (14.0-18.0); MEAN CORPUSCULAR HEMOGLOBIN 24.3 pg (28.0-32.0); MEAN CORPUSCULAR VOLUME 75.1 fL (80.0-94.0); MEAN PLATELET VOLUME 9.8 fl (7.4-10.4); PLATELET 125 x1000/uL (130-400); RED BLOOD CELL COUNT 3.61 mill/uL (4.7-6.1); RED CELL DISTRIBUTION WIDTH 20.2 % (11.6-14.6)
[2022-06-17 10:55] LABS: CHLORIDE 108 mEq/L (98-107)
[2022-06-17 10:56] LABS: INR 1.3; PROTHROMBIN TIME 13.5 sec (9.6-11.0)
[2022-06-17] MEDS ORDERED: POTASSIUM CHLORIDE INJ 40 MEQ in DEXT 5% WATER 250 ML IV ONE (11:45)
[2022-06-17] MEDS ORDERED: HYDRALAZINE 20MG/ML VIAL IV PRN (12:00)
[2022-06-17] MEDS: KCL 20MEQ/100ML X 2 FOR TOTAL KCL 40MEQ/200ML IV SCH ×2 (12:53→15:00)
[2022-06-17] MEDS ORDERED: HYDROCODONE/ACETAMINOPHEN 5/325MG TABLET PO PRN (14:15)
[2022-06-17] MEDS ORDERED: NALOXONE HCL 0.4MG/ML VIAL IV PRN (14:15)
[2022-06-17 18:46] LABS: HEMATOCRIT 25.6 % (42.0-52.0); HEMOGLOBIN 8.1 g/dL (14.0-18.0)
[2022-06-17] MEDS: PHENYTOIN SODIUM EXTENDED 100MG CAPSULE PO SCH (21:00)
[2022-06-17 23:03] LABS: HEMATOCRIT 25.7 % (42.0-52.0)
[2022-06-17 23:49] LABS: PLATELET ESTIMATE SLIGHTLY DECREASED
[2022-06-18] VITALS: BP 110/67
[2022-06-18] MEDS: ALBUTEROL (0.083%) 2.5MG/3ML NEB HHN SCH ×4 (01:59→20:42)
[2022-06-18] MEDS: DEXT 5%/0.9% NACL 1,000 ML IV SCH (03:38)
[2022-06-18 04:00] VITALS: BP 130/81
[2022-06-18 04:11] LABS: HEMATOCRIT 24.5 % (42.0-52.0); HEMOGLOBIN 7.7 g/dL (14.0-18.0)
[2022-06-18 04:18] LABS: CHLORIDE 110 mEq/L (98-107)
[2022-06-18] MEDS: PIPERACILLIN/TAZOBACTAM 3.375 G in DEXTROSE 5% WATER 50 ML IV SCH ×3 (06:00→20:58)
[2022-06-18] MEDS: KCL 10MEQ/50ML PREMIX 50 ML IV NR ×3 (06:00→12:26)
[2022-06-18] MEDS: FERROUS SULFATE 325MG TABLET PO SCH ×3 (07:10→16:33)
[2022-06-18] MEDS: HYDRALAZINE HCL 100MG TABLET PO SCH ×2 (07:38→16:33)
[2022-06-18] MEDS: DOCUSATE SODIUM 250MG CAPSULE PO SCH ×2 (07:38→16:33)
[2022-06-18] MEDS: LAMOTRIGINE 25MG TABLET PO SCH (07:38)
[2022-06-18] MEDS: LOSARTAN POTASSIUM 50 MG TABLET PO SCH (07:38)
[2022-06-18] MEDS: ASCORBIC ACID 500 MG TABLET PO SCH ×2 (07:47→16:32)
[2022-06-18 08:00] VITALS: BP 142/88
[2022-06-18] MEDS: PANTOPRAZOLE SODIUM 40 MG/VIAL IV SCH (08:06)
[2022-06-18] MEDS: BUDESONIDE 0.5MG/2ML NEB HHN SCH ×3 (08:07→20:42)
[2022-06-18] MEDS: AMLODIPINE 10MG TABLET PO SCH (08:14)
[2022-06-18] MEDS ORDERED: SODIUM BICARBONATE 4% (2.4MEQ) 5ML VIAL IV ONE (08:39)
[2022-06-18] MEDS ORDERED: LIDOCAINE HCL 1% 10 MG/ML 10ML VIAL ONE (08:40)
[2022-06-18 12:00] VITALS: BP 143/84
[2022-06-18 12:23] LABS: HEMATOCRIT 28.7 % (42.0-52.0); HEMOGLOBIN 8.8 g/dL (14.0-18.0)
[2022-06-18] MEDS ORDERED: POTASSIUM CHLORIDE 20MEQ TABLET SR PO SCH (14:00)
[2022-06-18 16:00] VITALS: BP 130/83
[2022-06-18 20:00] VITALS: BP 110/70
[2022-06-18] MEDS: CARVEDILOL 3.125 MG TABLET PO SCH (20:52)
[2022-06-18 20:57] LABS: HEMATOCRIT. 25.3 % (42.0-52.0); HEMOGLOBIN. 7.9 g/dL (14.0-18.0); MEAN CORPUSCULAR HEMOGLOBIN 23.9 pg (28.0-32.0); MEAN CORPUSCULAR VOLUME 76.8 fL (80.0-94.0); MEAN PLATELET VOLUME 9.8 fl (7.4-10.4); PLATELET 114 x1000/uL (130-400); RED BLOOD CELL COUNT 3.29 mill/uL (4.7-6.1)
[2022-06-18] MEDS: PHENYTOIN SODIUM EXTENDED 100MG CAPSULE PO SCH (20:58)
[2022-06-18 23:25] LABS: PLATELET ESTIMATE DECREASED
[2022-06-19 00:20] VITALS: BP 112/68
[2022-06-19] MEDS: ALBUTEROL (0.083%) 2.5MG/3ML NEB HHN SCH ×3 (02:30→15:24)
[2022-06-19 04:00] VITALS: BP 125/78
[2022-06-19 04:09] LABS: HIV SCREEN 4G Non Reactive (Non Reactive)
[2022-06-19] MEDS: PIPERACILLIN/TAZOBACTAM 3.375 G in DEXTROSE 5% WATER 50 ML IV SCH ×2 (05:47→14:00)
[2022-06-19 07:16] LABS: HEMATOCRIT. 23.6 % (42.0-52.0); HEMOGLOBIN. 7.3 g/dL (14.0-18.0); MEAN CORPUSCULAR HEMOGLOBIN 23.9 pg (28.0-32.0); MEAN CORPUSCULAR VOLUME 76.6 fL (80.0-94.0); MEAN PLATELET VOLUME 10.1 fl (7.4-10.4); PLATELET 114 x1000/uL (130-400); RED BLOOD CELL COUNT 3.07 mill/uL (4.7-6.1); RED CELL DISTRIBUTION WIDTH 21.2 % (11.6-14.6)
[2022-06-19 08:00] VITALS: BP 133/89
[2022-06-19 08:38] LABS: CHLORIDE 111 mEq/L (98-107)
[2022-06-19] MEDS ORDERED: SPIRONOLACTONE 50MG TABLET PO SCH (09:00)
[2022-06-19] MEDS: DOCUSATE SODIUM 250MG CAPSULE PO SCH ×2 (09:00→09:35)
[2022-06-19] MEDS ORDERED: FUROSEMIDE 40MG/4 ML UDC PO SCH (09:00)
[2022-06-19] MEDS: BUDESONIDE 0.5MG/2ML NEB HHN SCH (09:26)
[2022-06-19] MEDS: AMLODIPINE 10MG TABLET PO SCH (09:33)
[2022-06-19] MEDS: LOSARTAN POTASSIUM 50 MG TABLET PO SCH (09:33)
[2022-06-19] MEDS: PANTOPRAZOLE SODIUM 40 MG/VIAL IV SCH (09:33)
[2022-06-19] MEDS: ASCORBIC ACID 500 MG TABLET PO SCH (09:33)
[2022-06-19] MEDS: LAMOTRIGINE 25MG TABLET PO SCH (09:34)
[2022-06-19] MEDS: FERROUS SULFATE 325MG TABLET PO SCH (09:34)
[2022-06-19] MEDS: CARVEDILOL 3.125 MG TABLET PO SCH (09:34)
[2022-06-19] MEDS: HYDRALAZINE HCL 100MG TABLET PO SCH (09:35)
[2022-06-19 12:00] VITALS: BP 117/81
[2022-06-19 16:00] VITALS: BP 115/70
[2022-06-19 16:05] VITALS: BP 115/70
[2022-06-20 10:19] LABS: NUCLEATED RED BLOOD CELLS 2 /100 WBC; PLATELET ESTIMATE DECREASED
== END 2022-06-19 16:30 | disposition home or self-care (01) | DRG 280 ==
LOC: ER 18:22 → MICUSO 22:33 → EDBEDREQ 22:35 → 7EST 06-16 16:46
PROVIDERS: ADMIT Internal Medicine; ATTEND Internal Medicine
PROC: 30233N1 Transfusion of Nonautologous Red Blood Cells into Peripheral Vein, Percutaneous Approach (ICD-10-PCS; 2022-06-15)
PROC: 0W9G3ZZ Drainage of Peritoneal Cavity, Percutaneous Approach (ICD-10-PCS; principal; 2022-06-18)
DX: K70.31 Alcoholic cirrhosis of liver with ascites (principal); D61.818 Other pancytopenia; E87.20 Acidosis, unspecified; R65.10 Systemic inflammatory response syndrome (SIRS) of non-infectious origin without acute organ dysfunction; I11.0 Hypertensive heart disease with heart failure; E44.1 Mild protein-calorie malnutrition; E88.09 Other disorders of plasma-protein metabolism, not elsewhere classified; I50.9 Heart failure, unspecified; E11.9 Type 2 diabetes mellitus without complications; D50.9 Iron deficiency anemia, unspecified; E87.6 Hypokalemia; F10.10 Alcohol abuse, uncomplicated; Z20.822 Contact with and (suspected) exposure to COVID-19; K57.30 Diverticulosis of large intestine without perforation or abscess without bleeding; J44.9 Chronic obstructive pulmonary disease, unspecified; F17.210 Nicotine dependence, cigarettes, uncomplicated; R74.01 Elevation of levels of liver transaminase levels; Z82.49 Family history of ischemic heart disease and other diseases of the circulatory system; Z83.3 Family history of diabetes mellitus
CPT/HCPCS: 36415; 49083; 71045; 74177; 76700; 80048; 80051; 80053; 80076; 82040; 82270; 82607; 82728; 82746; 83540; 83550; 83605; 83615; 83880; 85014; 85018; 85025; 85044; 86705; 86709; 86803; 86850; 86900; 86920; 87340; 87389; 87426; 93005; 94640; 99291; C9113; J1940; J2405; J2543; J3480; J3490; J7042; J7060; J7626; P9016; Q9967

== ENCOUNTER 2022-08-08 09:02 | Inpatient (IN) | payer OTHER ==
[~2022-08-08] VITALS: Ht 175.3 cm; Wt 60.4 kg
[2022-08-08 10:02] LABS: MEAN CORPUSCULAR HEMOGLOBIN 21.3 pg (28.0-32.0); MEAN CORPUSCULAR VOLUME 73.7 fL (80.0-94.0); PLATELET 211 x1000/uL (130-400); RED BLOOD CELL COUNT 2.54 mill/uL (4.7-6.1); RED CELL DISTRIBUTION WIDTH 20.9 % (11.6-14.6)
[2022-08-08 10:14] LABS: CHLORIDE 109 mEq/L (98-107); HEMOGLOBIN. 5.4 g/dL (14.0-18.0)
[2022-08-08 10:15] LABS: HEMATOCRIT. 18.7 % (42.0-52.0)
[2022-08-08 10:23] LABS: INR 1.1; PROTHROMBIN TIME 11.4 sec (9.6-11.0)
[2022-08-08 12:55] LABS: PLATELET ESTIMATE NORMAL
[2022-08-08] MEDS ORDERED: IPRATROPIUM/ALBUTEROL 0.5-3(2.5)MG/3ML NEB HHN PRN (15:30)
[2022-08-08] MEDS ORDERED: ACETAMINOPHEN 325MG TABLET PO PRN (15:30)
[2022-08-08] MEDS ORDERED: PANTOPRAZOLE SODIUM 40 MG/VIAL IV SCH (15:30)
[2022-08-08] MEDS ORDERED: FUROSEMIDE 40MG/4ML VIAL IVP NR (15:30)
[2022-08-08] MEDS ORDERED: ONDANSETRON HCL 4MG/2ML INJ IV PRN (15:30)
[2022-08-08] MEDS ORDERED: IPRATROPIUM BROMIDE (0.02%) 0.5MG/2.5ML NEB HHN PRN (15:45)
[2022-08-08] MEDS ORDERED: ALBUTEROL (0.083%) 2.5MG/3ML NEB HHN PRN (15:45)
[2022-08-08 16:14] LABS: TOTAL IRON BINDING CAPACITY 364 ug/dL (250-450)
[2022-08-08 16:50] LABS: VITAMIN B12 SERUM 493 pg/mL (211-911)
[2022-08-08 17:45] LABS: HEPATITIS B SURFACE ANTIGEN NEGATIVE
[2022-08-08 18:51] VITALS: BP 150/90
[2022-08-08 19:10] LABS: FERRITIN 9 ng/mL (22-322)
[2022-08-08 20:00] VITALS: BP_SYST 150; BP_SYST 175; BP_DIAS 90; BP_DIAS 92
[2022-08-08] MEDS: PANTOPRAZOLE SODIUM 40 MG/VIAL IV SCH (20:26)
[2022-08-08] MEDS: HYDRALAZINE 20MG/ML VIAL IV PRN (21:24)
[2022-08-08 22:05] VITALS: BP 159/93
[2022-08-08 22:20] VITALS: BP 146/89
[2022-08-08 23:05] VITALS: BP 154/93
[2022-08-09] VITALS (13 sets, daily range): BP systolic 133–183; BP diastolic 76–99
[2022-08-09 03:42] LABS: HEMATOCRIT. 21.1 % (42.0-52.0); MEAN CORPUSCULAR HEMOGLOBIN 22.8 pg (28.0-32.0); MEAN CORPUSCULAR VOLUME 73.5 fL (80.0-94.0); MEAN PLATELET VOLUME 8.5 fl (7.4-10.4); PLATELET 166 x1000/uL (130-400); RED BLOOD CELL COUNT 2.87 mill/uL (4.7-6.1); RED CELL DISTRIBUTION WIDTH 20.5 % (11.6-14.6)
[2022-08-09 03:47] LABS: CHLORIDE 111 mEq/L (98-107)
[2022-08-09 03:49] LABS: INR 1.2; PROTHROMBIN TIME 12.5 sec (9.6-11.0)
[2022-08-09 03:52] LABS: HEMOGLOBIN. 6.5 g/dL (14.0-18.0)
[2022-08-09 03:57] LABS: CREATINE KINASE 40 IU/L (39-308); CREATINE KINASE MB FRACTION 2.1 ng/mL (0.5-3.6)
[2022-08-09] MEDS: HYDRALAZINE 20MG/ML VIAL IV PRN ×2 (05:26→11:10)
[2022-08-09 07:50] LABS: PLATELET ESTIMATE NORMAL
[2022-08-09] MEDS ORDERED: POTASSIUM CHLORIDE INJ 40 MEQ in DEXT 5% WATER 250 ML IV ONE (11:00)
[2022-08-09] MEDS ORDERED: PNEUMOCOCCAL 23-VAL P-SAC VAC 0.5 ML IM ONE (11:00)
[2022-08-09] MEDS: IRON SUCROSE COMPLEX 100 MG/5 ML ML IV SCH (11:09)
[2022-08-09] MEDS: PANTOPRAZOLE SODIUM 40 MG/VIAL IV SCH ×2 (11:10→20:43)
[2022-08-09] MEDS ORDERED: KCL 20MEQ/100ML X 2 FOR TOTAL KCL 40MEQ/200ML IV SCH (12:00)
[2022-08-09] MEDS ORDERED: POTASSIUM CHLORIDE 20MEQ/PACKET PO NR ×2 (12:15→20:00)
[2022-08-09] MEDS: METOCLOPRAMIDE HCL 10MG/2ML VIAL IV SCH ×3 (13:37→20:43)
[2022-08-09] MEDS: BISACODYL 5MG TABLET PO SCH ×3 (13:37→20:44)
[2022-08-09] MEDS: SORBITOL 70% SOLN 30ML PO SCH ×3 (14:00→21:16)
[2022-08-09 16:21] LABS: HEMATOCRIT 31.9 % (42.0-52.0); HEMOGLOBIN 9.6 g/dL (14.0-18.0); MEAN CORPUSCULAR HEMOGLOBIN 23.7 pg (28.0-32.0); MEAN CORPUSCULAR VOLUME 78.6 fL (80.0-94.0); PLATELET 184 x1000/uL (130-400); RED BLOOD CELL COUNT 4.05 mill/uL (4.7-6.1); RED CELL DISTRIBUTION WIDTH 21.2 % (11.6-14.6)
[2022-08-09 16:28] LABS: CREATINE KINASE MB FRACTION 2.2 ng/mL (0.5-3.6)
[2022-08-09] MEDS ORDERED: IPRATROPIUM/ALBUTEROL 0.5-3(2.5)MG/3ML NEB HHN SCH (20:00)
[2022-08-09 21:52] LABS: HEMATOCRIT. 26.7 % (42.0-52.0); HEMOGLOBIN. 8.4 g/dL (14.0-18.0); MEAN CORPUSCULAR HEMOGLOBIN 24.1 pg (28.0-32.0); MEAN CORPUSCULAR VOLUME 76.6 fL (80.0-94.0); MEAN PLATELET VOLUME 8.9 fl (7.4-10.4); PLATELET 163 x1000/uL (130-400); RED BLOOD CELL COUNT 3.49 mill/uL (4.7-6.1); RED CELL DISTRIBUTION WIDTH 21.3 % (11.6-14.6)
[2022-08-09] MEDS: IPRATROPIUM BROMIDE (0.02%) 0.5MG/2.5ML NEB HHN SCH (22:22)
[2022-08-09] MEDS: ALBUTEROL (0.083%) 2.5MG/3ML NEB HHN SCH (22:22)
[2022-08-09 22:23] LABS: PLATELET ESTIMATE NORMAL
[2022-08-10] VITALS: BP 128/87
[2022-08-10] MEDS: BISACODYL 5MG TABLET PO SCH (00:54)
[2022-08-10] MEDS: METOCLOPRAMIDE HCL 10MG/2ML VIAL IV SCH (00:54)
[2022-08-10] MEDS: ALBUTEROL (0.083%) 2.5MG/3ML NEB HHN SCH ×5 (01:05→16:30)
[2022-08-10] MEDS: IPRATROPIUM BROMIDE (0.02%) 0.5MG/2.5ML NEB HHN SCH ×5 (01:05→16:30)
[2022-08-10] MEDS: SORBITOL 70% SOLN 30ML PO SCH (01:22)
[2022-08-10 03:33] LABS: CHLORIDE 112 mEq/L (98-107)
[2022-08-10 03:35] LABS: INR 1.2; PROTHROMBIN TIME 12.4 sec (9.6-11.0)
[2022-08-10 03:55] LABS: HEMATOCRIT. 26.7 % (42.0-52.0); HEMOGLOBIN. 8.6 g/dL (14.0-18.0); MEAN CORPUSCULAR HEMOGLOBIN 24.1 pg (28.0-32.0); MEAN CORPUSCULAR VOLUME 75.2 fL (80.0-94.0); MEAN PLATELET VOLUME 8.5 fl (7.4-10.4); PLATELET 165 x1000/uL (130-400); RED BLOOD CELL COUNT 3.54 mill/uL (4.7-6.1); RED CELL DISTRIBUTION WIDTH 21.5 % (11.6-14.6)
[2022-08-10 04:00] VITALS: BP 126/80
[2022-08-10 04:23] LABS: PLATELET ESTIMATE NORMAL
[2022-08-10] MEDS ORDERED: SORBITOL 70% SOLN 30ML PO NR (05:15)
[2022-08-10] MEDS ORDERED: METOCLOPRAMIDE HCL 10MG/2ML VIAL IV NR (05:15)
[2022-08-10] MEDS ORDERED: POTASSIUM CHLORIDE 20MEQ/PACKET PO NR (05:15)
[2022-08-10] MEDS: PANTOPRAZOLE SODIUM 40 MG/VIAL IV SCH (09:32)
[2022-08-10] MEDS: IRON SUCROSE COMPLEX 100 MG/5 ML ML IV SCH (09:32)
[2022-08-10] MEDS ORDERED: MIDAZOLAM HCL 5 MG/5 ML VIAL ONE (12:02)
[2022-08-10] MEDS ORDERED: EPHEDRINE SULFATE 50MG/ML VIAL ONE (12:02)
[2022-08-10] MEDS ORDERED: PHENYLEPHRINE HCL 10 MG/ML 1ML (IV VIAL) IV ONE (12:02)
[2022-08-10] MEDS ORDERED: LIDOCAINE HCL 1% 10 MG/ML 10ML VIAL ONE (12:02)
[2022-08-10] MEDS ORDERED: PROPOFOL 200MG/20ML VIAL IV ONE ×3 (12:02→12:59)
[2022-08-10] MEDS ORDERED: SIMETHICONE 40 MG/0.6 ML 15ML ONE (12:19)
[2022-08-10] MEDS ORDERED: METRONIDAZOLE 500 MG PREMIX 100 ML IV SCH (14:00)
[2022-08-10] MEDS ORDERED: LEVOFLOXACIN 500MG PREMIX 100 ML IV SCH (15:00)
[2022-08-10] MEDS ORDERED: SUCRALFATE 1G TABLET PO SCH (17:40)
== END 2022-08-10 17:48 | disposition left against medical advice (07) | DRG 241 ==
LOC: ER 09:02 → 7WST 11:29 → EDBEDREQ 11:31 → EDBEDREQTM 11:31
PROVIDERS: ADMIT Internal Medicine; ATTEND Internal Medicine
PROC: 30233N1 Transfusion of Nonautologous Red Blood Cells into Peripheral Vein, Percutaneous Approach (ICD-10-PCS; 2022-08-08)
PROC: 0W3P8ZZ Control Bleeding in Gastrointestinal Tract, Via Natural or Artificial Opening Endoscopic (ICD-10-PCS; 2022-08-08)
PROC: 30233N1 Transfusion of Nonautologous Red Blood Cells into Peripheral Vein, Percutaneous Approach (ICD-10-PCS; 2022-08-08)
PROC: 30233N1 Transfusion of Nonautologous Red Blood Cells into Peripheral Vein, Percutaneous Approach (ICD-10-PCS; 2022-08-08)
PROC: 0DB68ZX Excision of Stomach, Via Natural or Artificial Opening Endoscopic, Diagnostic (ICD-10-PCS; principal; 2022-08-10)
PROC: 0DBN8ZX Excision of Sigmoid Colon, Via Natural or Artificial Opening Endoscopic, Diagnostic (ICD-10-PCS; 2022-08-10)
DX: K29.71 Gastritis, unspecified, with bleeding (principal); K55.21 Angiodysplasia of colon with hemorrhage; K70.31 Alcoholic cirrhosis of liver with ascites; K57.31 Diverticulosis of large intestine without perforation or abscess with bleeding; D50.9 Iron deficiency anemia, unspecified; F10.10 Alcohol abuse, uncomplicated; K31.811 Angiodysplasia of stomach and duodenum with bleeding; E87.6 Hypokalemia; I10 Essential (primary) hypertension; K29.81 Duodenitis with bleeding; J44.9 Chronic obstructive pulmonary disease, unspecified; K31.819 Angiodysplasia of stomach and duodenum without bleeding; Z20.822 Contact with and (suspected) exposure to COVID-19; Z53.29 Procedure and treatment not carried out because of patient's decision for other reasons; Z87.891 Personal history of nicotine dependence
CPT/HCPCS: 36415; 71045; 74176; 80048; 80053; 80076; 82550; 82553; 82607; 82728; 82746; 83540; 83550; 83880; 84484; 85025; 85027; 85044; 86705; 86709; 86803; 86850; 86900; 86920; 87340; 87426; 88305; 93005; 94640; 99285; C9113; J0360; J1940; J1956; J2250; J2370; J2704; J2765; J3480; J3490; P9016

== ENCOUNTER 2022-11-15 11:51 | Inpatient (IN) | payer OTHER ==
[~2022-11-15] VITALS: Ht 175.3 cm; Wt 66.2 kg
[~2022-11-15 11:51] MED LIST changes: +LOSA-413 PO; -LOSA50TA3 PO; +MOME13HF12 INH; -MOME13HF2 INH
[2022-11-15 12:32] LABS: MEAN CORPUSCULAR HEMOGLOBIN 19.6 pg (28.0-32.0); MEAN CORPUSCULAR VOLUME 67.8 fL (80.0-94.0); MEAN PLATELET VOLUME 8.6 fl (7.4-10.4); PLATELET 165 x1000/uL (130-400); RED BLOOD CELL COUNT 2.93 mill/uL (4.7-6.1); RED CELL DISTRIBUTION WIDTH 20.9 % (11.6-14.6)
[2022-11-15 12:42] LABS: CHLORIDE 105 mEq/L (98-107)
[2022-11-15 12:47] LABS: HEMATOCRIT. 19.9 % (42.0-52.0); HEMOGLOBIN. 5.7 g/dL (14.0-18.0)
[2022-11-15 12:54] LABS: CLARITY URINE CLEAR (CLEAR); COLOR URINE YELLOW (YELLOW); KETONES URINE TRACE (NEGATIVE); LEUKOCYTE ESTERASE URINE NEGATIVE (NEGATIVE); NITRITE URINE NEGATIVE (NEGATIVE); OCCULT BLOOD URINE NEGATIVE (NEGATIVE); PH URINE 6.5 (4.5-8.0); PROTEIN URINE NEGATIVE (NEGATIVE); SPECIFIC GRAVITY URINE 1.014 (1.005-1.030)
[2022-11-15 14:36] LABS: NUCLEATED RED BLOOD CELLS 1 /100 WBC; PLATELET ESTIMATE NORMAL
[2022-11-15 22:03] VITALS: BP 184/108
[2022-11-15] MEDS ORDERED: DOCUSATE SODIUM 250MG CAPSULE PO SCH (22:45)
[2022-11-15] MEDS ORDERED: CLONIDINE 0.2MG TABLET PO PRN (23:00)
[2022-11-15] MEDS ORDERED: HYDROCODONE/ACETAMINOPHEN 5/325MG TABLET PO PRN (23:00)
[2022-11-15] MEDS ORDERED: ACETAMINOPHEN 325MG TABLET PO PRN (23:00)
[2022-11-15] MEDS ORDERED: NALOXONE HCL 0.4MG/ML VIAL IV PRN (23:00)
[2022-11-15] MEDS ORDERED: PHENYTOIN SODIUM EXTENDED 100MG CAPSULE PO SCH (23:00)
[2022-11-15] MEDS ORDERED: LEVETIRACETAM 500MG/5ML CUP PO NR (23:00)
[2022-11-15] MEDS: LAMOTRIGINE 25MG TABLET PO SCH (23:24)
[2022-11-15] MEDS: HYDRALAZINE HCL 100MG TABLET PO SCH (23:25)
[2022-11-15] MEDS: LOSARTAN POTASSIUM 50 MG TABLET PO SCH (23:25)
[2022-11-15] MEDS: AMLODIPINE 10MG TABLET PO SCH (23:25)
[2022-11-15 23:32] VITALS: BP 189/94
[2022-11-15] MEDS: IPRATROPIUM/ALBUTEROL 0.5-3(2.5)MG/3ML NEB HHN SCH (23:33)
[2022-11-15] MEDS: DOCUSATE SODIUM SUGAR FREE 100MG/10ML UDC PO SCH (23:55)
[2022-11-16 00:02] VITALS: BP 120/67
[2022-11-16 02:54] LABS: HEMATOCRIT 27.7 % (42.0-52.0); HEMOGLOBIN 8.7 g/dL (14.0-18.0)
[2022-11-16 04:00] VITALS: BP 117/70
[2022-11-16] MEDS ORDERED: OMEPRAZOLE 20MG CAPSULE EXTENDED RELEASE PO SCH (06:50)
[2022-11-16 07:02] LABS: HEMATOCRIT. 25.5 % (42.0-52.0); HEMOGLOBIN. 8.1 g/dL (14.0-18.0); MEAN CORPUSCULAR HEMOGLOBIN 22.7 pg (28.0-32.0); MEAN CORPUSCULAR VOLUME 71.4 fL (80.0-94.0); PLATELET 119 x1000/uL (130-400); RED BLOOD CELL COUNT 3.58 mill/uL (4.7-6.1); RED CELL DISTRIBUTION WIDTH 23.3 % (11.6-14.6)
[2022-11-16] MEDS ORDERED: FERROUS SULFATE 325MG TABLET PO SCH (07:20)
[2022-11-16 07:37] LABS: CHLORIDE 107 mEq/L (98-107)
[2022-11-16 08:01] VITALS: BP 139/64
[2022-11-16 08:10] LABS: T4 FREE 1.05 ng/dL (0.76-1.46)
[2022-11-16 08:12] LABS: VITAMIN B12 SERUM 384 pg/mL (211-911)
[2022-11-16] MEDS: LAMOTRIGINE 25MG TABLET PO SCH (08:44)
[2022-11-16] MEDS: AMLODIPINE 10MG TABLET PO SCH (08:44)
[2022-11-16] MEDS: HYDRALAZINE HCL 100MG TABLET PO SCH (08:44)
[2022-11-16] MEDS: LOSARTAN POTASSIUM 50 MG TABLET PO SCH (08:44)
[2022-11-16] MEDS: DOCUSATE SODIUM SUGAR FREE 100MG/10ML UDC PO SCH (08:45)
[2022-11-16] MEDS ORDERED: ASCORBIC ACID 500 MG TABLET PO SCH (09:00)
[2022-11-16] MEDS ORDERED: LEVETIRACETAM 500MG TABLET PO SCH (09:00)
[2022-11-16] MEDS: IPRATROPIUM/ALBUTEROL 0.5-3(2.5)MG/3ML NEB HHN SCH ×2 (09:18→13:09)
[2022-11-17 10:22] LABS: PLATELET ESTIMATE DECREASED
== END 2022-11-16 12:50 | disposition left against medical advice (07) | DRG 663 ==
LOC: ER 11:51 → 3WST 19:02 → EDBEDREQTM 19:03 → EDBEDREQ 19:03 → ENRESERV 21:00
PROVIDERS: ADMIT Internal Medicine; ATTEND Internal Medicine
PROC: 30233N1 Transfusion of Nonautologous Red Blood Cells into Peripheral Vein, Percutaneous Approach (ICD-10-PCS; principal; 2022-11-15)
DX: D64.9 Anemia, unspecified (principal); E44.1 Mild protein-calorie malnutrition; F17.200 Nicotine dependence, unspecified, uncomplicated; G40.909 Epilepsy, unspecified, not intractable, without status epilepticus; Z53.29 Procedure and treatment not carried out because of patient's decision for other reasons; I10 Essential (primary) hypertension; J44.9 Chronic obstructive pulmonary disease, unspecified
CPT/HCPCS: 36415; 80048; 80053; 81003; 82270; 82607; 84439; 84443; 85014; 85018; 85025; 86850; 86900; 86920; 93005; 94640; 99291; P9016

== ENCOUNTER 2023-09-11 17:19 | Emergency (ER) | payer OTHER ==
[~2023-09-11] VITALS: Ht 170.2 cm; Wt 79.0 kg
[2023-09-11 17:21] VITALS: BP 132/82; PULSE 80; RESP 18; TEMP 97.3; O2SAT 99
== END 2023-09-11 20:32 | disposition left against medical advice (07) ==
LOC: ER 17:19
DX: R42 Dizziness and giddiness (principal); Z53.21 Procedure and treatment not carried out due to patient leaving prior to being seen by health care provider
CPT/HCPCS: 99281

== ENCOUNTER 2023-12-23 10:17 | Inpatient (IN) | payer MEDICAID ==
[~2023-12-23] VITALS: Ht 175.3 cm; Wt 65.1 kg
[~2023-12-23 10:17] MED LIST changes: +P20 MT
[2023-12-23 10:36] VITALS: PULSE 110; RESP 33; O2SAT 88
[2023-12-23] MEDS: ALBUTEROL (0.083%) 2.5MG/3ML NEB HHN STA (10:36)
[2023-12-23] MEDS: IPRATROPIUM BROMIDE (0.02%) 0.5MG/2.5ML NEB HHN STA (10:36)
[2023-12-23] MEDS: METHYLPREDNISOLONE SOD SUCC 125MG/2ML (ACT-O-VIAL) IV STA (10:46)
[2023-12-23] MEDS: MAGNESIUM 2 G PREMIX 50 ML IV STA (10:46)
[2023-12-23 11:17] LABS: BASOPHILS % 1.1 % (0.0-2.0); DIFFERENTIAL COMMENT 0; EOSINOPHILS % 0.5 % (0.0-5.0); LYMPHOCYTES % 22.4 % (20.0-50.0); MEAN CORPUSCULAR HEMOGLOBIN 26.8 pg (28.0-32.0); MEAN CORPUSCULAR HGB CONC 31.3 g/dL (31.0-37.0); MEAN CORPUSCULAR VOLUME 85.8 fL (80.0-94.0); MEAN PLATELET VOLUME 9.1 fl (7.4-10.4); MONOCYTES % 12.7 % (2.0-8.0); NEUTROPHILS % 63.3 % (40.0-76.0); PLATELET 149 x1000/uL (130-400); RED CELL DISTRIBUTION WIDTH 19.4 % (11.6-14.6); WHITE BLOOD COUNT 3.7 x1000/uL (4.5-11.0)
[2023-12-23 11:19] LABS: BG BASE EXCESS -3.8 mmol/L (-2.0-2.0); BG CARBOXYHEMOGLOBIN 2.2 % (0.5-1.5); BG DEOXYHEMOGLOBIN 0.7 % (0.0-5.0); BG FRACTION INSPIRED OXYGEN 40; BG HCO3 ACT 18.8 mmol/L (22.0-26.0); BG METHEMOGLOBIN 0.3 % (0.0-1.5); BG OXYGEN SATURATION 99.3 % (92.0-98.5); BG OXYHEMOGLOBIN 96.8 % (94.0-97.0); BG PCO2 24.2 mmHg (35.0-45.0); BG PH 7.508 (7.350-7.450); BG PO2 188.8 mmHg (75.0-100.0); BG SAMPLE SITE RIGHT RADIAL; BG TOTAL HEMOGLOBIN 6.5 g/dL (12.0-18.0); BG VENT MODE COOL AEROSOL
[2023-12-23 11:24] LABS: CHLORIDE 107 mEq/L (98-107); POTASSIUM 3.5 mEq/L (3.5-5.1); SODIUM 138 mEq/L (136-145)
[2023-12-23 11:25] LABS: CALCIUM 9.1 mg/dL (8.7-10.4); CARBON DIOXIDE 22 mEq/L (21-32)
[2023-12-23 11:30] LABS: GLUCOSE 95 mg/dL (70-105); UREA NITROGEN BLOOD 18 mg/dL (9-23)
[2023-12-23 11:40] LABS: TROPONIN I HIGH SENSITIVITY 111 ng/L (3.0-53)
[2023-12-23 11:41] LABS: HEMATOCRIT. 18.8 % (42.0-52.0); HEMOGLOBIN. 5.9 g/dL (14.0-18.0)
[2023-12-23] MEDS ORDERED: ONDANSETRON HCL 4MG/2ML INJ IV PRN (15:30)
[2023-12-23] MEDS ORDERED: HYDROCODONE/ACETAMINOPHEN 5/325MG TABLET PO PRN (15:30)
[2023-12-23] MEDS ORDERED: CLONIDINE 0.1MG TABLET PO PRN (15:30)
[2023-12-23] MEDS ORDERED: ACETAMINOPHEN 325MG TABLET PO PRN (15:30)
[2023-12-23] MEDS ORDERED: ENOXAPARIN 40MG/0.4ML SYR SUBCUT SCH (15:30)
[2023-12-23] MEDS ORDERED: NALOXONE HCL 0.4MG/ML VIAL IV PRN (15:45)
[2023-12-23 16:26] LABS: *AMPHETAMINES SCREEN URINE NEGATIVE (NEGATIVE); *BARBITURATES SCREEN URINE NEGATIVE (NEGATIVE); *BENZODIAZEPINES SCREEN URINE NEGATIVE (NEGATIVE); *COCAINE SCREEN URINE PRESUMPTIVE POSITIVE (NEGATIVE)
[2023-12-23 16:27] LABS: CANNABINOID URINE SCREEN NEGATIVE (NEGATIVE); ECSTASY MDMA SCREEN URINE NEGATIVE (NEGATIVE); METHADONE URINE SCREEN NEGATIVE (NEGATIVE); OPIATES URINE SCREEN NEGATIVE (NEGATIVE); PHENCYCLIDINE URINE SCREEN NEGATIVE (NEGATIVE)
[2023-12-23] MEDS: OMEPRAZOLE 20MG CAPSULE EXTENDED RELEASE PO SCH (17:10)
[2023-12-23] MEDS: DILTIAZEM HCL 5MG/ML 5ML VIAL IV NR (17:29)
[2023-12-23] MEDS ORDERED: NITR0.4T49 SL (17:31)
[2023-12-23] MEDS ORDERED: FOLI-43 PO (17:31)
[2023-12-23] MEDS ORDERED: PANT40TA51 PO (17:31)
[2023-12-23 17:53] VITALS: PULSE 102; RESP 18; O2SAT 100
[2023-12-23] MEDS: IPRATROPIUM/ALBUTEROL 0.5-3(2.5)MG/3ML NEB HHN PRN (17:53)
[2023-12-23 18:17] LABS: HEMATOCRIT 22.7 % (42.0-52.0); HEMOGLOBIN 7.1 g/dL (14.0-18.0)
[2023-12-23 21:00] VITALS: BP 133/79; PULSE 100; RESP 20; TEMP 100
[2023-12-24] VITALS (12 sets, daily range): BP systolic 128–152; BP diastolic 56–92; PULSE 87–101; RESP 18–20; TEMP 96–99; O2SAT 98
[2023-12-24 00:39] LABS: CREATINE KINASE MB FRACTION 2.5 ng/mL (0.5-3.6)
[2023-12-24 05:57] LABS: CREATINE KINASE MB FRACTION 2.8 ng/mL (0.5-3.6)
[2023-12-24] MEDS: AMLODIPINE 10MG TABLET PO SCH (12:59)
[2023-12-24 13:10] LABS: CHLORIDE 106 mEq/L (98-107); POTASSIUM 4.3 mEq/L (3.5-5.1); SODIUM 133 mEq/L (136-145)
[2023-12-24 13:11] LABS: CARBON DIOXIDE 21 mEq/L (21-32); MEAN CORPUSCULAR HGB CONC 31.1 g/dL (31.0-37.0); MEAN CORPUSCULAR VOLUME 90.1 fL (80.0-94.0); MEAN PLATELET VOLUME 9.3 fl (7.4-10.4); PLATELET 138 x1000/uL (130-400); RED BLOOD CELL COUNT 2.47 mill/uL (4.7-6.1); RED CELL DISTRIBUTION WIDTH 19.7 % (11.6-14.6); WHITE BLOOD COUNT 8.7 x1000/uL (4.5-11.0)
[2023-12-24 13:12] LABS: CALCIUM 9.2 mg/dL (8.7-10.4)
[2023-12-24 13:16] LABS: DIFFERENTIAL COMMENT 1
[2023-12-24 13:17] LABS: GLUCOSE 92 mg/dL (70-105); UREA NITROGEN BLOOD 15 mg/dL (9-23)
[2023-12-24 13:18] LABS: ALANINE AMINOTRANSFERASE 19 IU/L (10-49); ASPARTATE AMINOTRANSFERASE 26 IU/L (<34)
[2023-12-24 13:19] LABS: ALBUMIN 3.7 g/dL (3.2-4.8); BILIRUBIN DIRECT 0.3 mg/dL (<=3.0); BILIRUBIN TOTAL 0.5 mg/dL (0.1-1.0)
[2023-12-24 13:20] LABS: HEMATOCRIT. 22.3 % (42.0-52.0); HEMOGLOBIN. 6.9 g/dL (14.0-18.0)
[2023-12-24 13:23] LABS: INR 1.1; PROTHROMBIN TIME 11.7 sec (9.6-11.0)
[2023-12-24 14:37] LABS: CLARITY URINE CLEAR (CLEAR); COLOR URINE DARK YELLOW (YELLOW); GLUCOSE URINE NEGATIVE (NEGATIVE); KETONES URINE TRACE (NEGATIVE); LEUKOCYTE ESTERASE URINE TRACE (NEGATIVE); NITRITE URINE NEGATIVE (NEGATIVE); OCCULT BLOOD URINE NEGATIVE (NEGATIVE); PH URINE 6.5 (4.5-8.0); PROTEIN URINE NEGATIVE (NEGATIVE); SPECIFIC GRAVITY URINE 1.019 (1.005-1.030); UROBILINOGEN URINE 0.2 E.U./dL (0.2-1.0)
[2023-12-24 15:06] LABS: SQUAMOUS EPITHELIAL CELL URINE 2+ /lpf (RARE/1+)
[2023-12-24 15:07] LABS: HYALINE CASTS URINE 0-5 /lpf
[2023-12-24 15:08] LABS: BACTERIA URINE NONE SEEN; RBC URINE NONE SEEN /hpf (0-2); WBC URINE 0-2 /hpf (0-2)
[2023-12-24] MEDS ORDERED: IPRATROPIUM/ALBUTEROL 0.5-3(2.5)MG/3ML NEB HHN PRN (18:00)
[2023-12-24 20:12] LABS: PLATELET ESTIMATE NORMAL
[2023-12-25] VITALS: BP 148/85; PULSE 90; RESP 19; TEMP 97.5
[2023-12-25 00:05] VITALS: PULSE 103; RESP 18; O2SAT 98
[2023-12-25 04:00] VITALS: BP 135/83; PULSE 90; RESP 19; TEMP 98.1
[2023-12-25 07:15] LABS: CARBON DIOXIDE 21 mEq/L (21-32); CHLORIDE 105 mEq/L (98-107); POTASSIUM 3.7 mEq/L (3.5-5.1); SODIUM 133 mEq/L (136-145)
[2023-12-25 07:17] LABS: CALCIUM 8.9 mg/dL (8.7-10.4)
[2023-12-25 07:20] LABS: GLUCOSE 91 mg/dL (70-105)
[2023-12-25 07:21] LABS: UREA NITROGEN BLOOD 14 mg/dL (9-23)
[2023-12-25 07:32] LABS: BASOPHILS % 0.3 % (0.0-2.0); DIFFERENTIAL COMMENT 0; EOSINOPHILS % 0.2 % (0.0-5.0); LYMPHOCYTES % 10.5 % (20.0-50.0); MEAN CORPUSCULAR HEMOGLOBIN 28.5 pg (28.0-32.0); MEAN CORPUSCULAR HGB CONC 32.7 g/dL (31.0-37.0); MEAN CORPUSCULAR VOLUME 87.2 fL (80.0-94.0); MEAN PLATELET VOLUME 8.9 fl (7.4-10.4); MONOCYTES % 10.1 % (2.0-8.0); NEUTROPHILS % 78.9 % (40.0-76.0); PLATELET 109 x1000/uL (130-400); RED BLOOD CELL COUNT 2.39 mill/uL (4.7-6.1); RED CELL DISTRIBUTION WIDTH 19.1 % (11.6-14.6); WHITE BLOOD COUNT 4.4 x1000/uL (4.5-11.0)
[2023-12-25 07:59] LABS: HEMATOCRIT. 20.9 % (42.0-52.0); HEMOGLOBIN. 6.8 g/dL (14.0-18.0)
[2023-12-25 08:00] VITALS: BP 116/83; PULSE 99; RESP 17; TEMP 98.1
[2023-12-25 12:00] VITALS: BP 110/75; PULSE 100; RESP 18; TEMP 97.7
== END 2023-12-25 13:14 | disposition left against medical advice (07) | DRG 140 ==
LOC: ER 10:17 → EDBEDREQTM 13:05 → EDBEDREQ 13:05 → 7EST 20:55
PROVIDERS: ADMIT Internal Medicine; ATTEND Internal Medicine
PROC: 30233N1 Transfusion of Nonautologous Red Blood Cells into Peripheral Vein, Percutaneous Approach (ICD-10-PCS; principal; 2023-12-23)
DX: J44.1 Chronic obstructive pulmonary disease with (acute) exacerbation (principal); J96.01 Acute respiratory failure with hypoxia; D64.9 Anemia, unspecified; F15.90 Other stimulant use, unspecified, uncomplicated; E11.9 Type 2 diabetes mellitus without complications; F17.210 Nicotine dependence, cigarettes, uncomplicated; K74.60 Unspecified cirrhosis of liver; I10 Essential (primary) hypertension; F19.90 Other psychoactive substance use, unspecified, uncomplicated; Z53.29 Procedure and treatment not carried out because of patient's decision for other reasons
CPT/HCPCS: 36415; 36600; 71045; 80048; 80076; 80305; 81003; 82375; 82550; 82553; 82805; 83880; 84484; 85014; 85018; 85025; 86850; 86900; 86920; 93005; 94640; 94644; 99285; J2930; J3475; J3490; P9016

== ENCOUNTER 2024-03-16 15:46 | Inpatient (IN) | payer MEDICAID ==
[~2024-03-16] VITALS: Ht 177.8 cm; Wt 72.7 kg
[~2024-03-16 15:46] MED LIST changes: -ALBU18HF2 IH; -ASCO500T20 PO; +FOLI-43 PO; +HYDR100T11 MT; -HYDR100T26 MT; -IPRA3AMP9 NEB; -MOME13HF11 INH; -MOME13HF12 INH; +NITR0.4T49 SL; -OMEP20CA14 PO; -P20 MT; +PANT40TA51 PO
[2024-03-16 16:32] LABS: MEAN CORPUSCULAR HEMOGLOBIN 22.6 pg (28.0-32.0); MEAN CORPUSCULAR HGB CONC 29.2 g/dL (31.0-37.0); MEAN CORPUSCULAR VOLUME 77.5 fL (80.0-94.0); MEAN PLATELET VOLUME 8.8 fl (7.4-10.4); PLATELET 160 x1000/uL (130-400); RED BLOOD CELL COUNT 2.27 mill/uL (4.7-6.1); RED CELL DISTRIBUTION WIDTH 20.8 % (11.6-14.6); WHITE BLOOD COUNT 4.3 x1000/uL (4.5-11.0)
[2024-03-16 16:34] LABS: DIFFERENTIAL COMMENT 1
[2024-03-16 16:36] LABS: CHLORIDE 104 mEq/L (98-107); HEMOGLOBIN. 5.1 g/dL (14.0-18.0); POTASSIUM 2.9 mEq/L (3.5-5.1); SODIUM 135 mEq/L (136-145)
[2024-03-16 16:37] LABS: CALCIUM 8.2 mg/dL (8.7-10.4); CARBON DIOXIDE 24 mEq/L (21-32); HEMATOCRIT. 17.6 % (42.0-52.0)
[2024-03-16 16:42] LABS: CREATININE 0.9 mg/dL (0.6-1.3); GLUCOSE 76 mg/dL (70-105); UREA NITROGEN BLOOD 6 mg/dL (9-23)
[2024-03-16 16:50] LABS: TROPONIN I HIGH SENSITIVITY 164 ng/L (3.0-53)
[2024-03-16] MEDS: POTASSIUM CHLORIDE 20MEQ TABLET SR PO ONE (17:01)
[2024-03-16] MEDS: MAGNESIUM 2 G PREMIX 50 ML IV ONE (17:55)
[2024-03-16] MEDS: ALBUTEROL (0.083%) 2.5MG/3ML NEB HHN ONE (18:44)
[2024-03-16] MEDS: PANTOPRAZOLE SODIUM 40 MG/VIAL IV STA (18:50)
[2024-03-16] MEDS: CEFTRIAXONE 1GM/50ML 50 ML IV ONE (18:50)
[2024-03-16] MEDS: OCTREOTIDE ACETATE 50 MCG/ML 1ML IV ONE (18:50)
[2024-03-16 18:53] LABS: ANISOCYTOSIS 2+; PLATELET ESTIMATE NORMAL
[2024-03-16 18:54] LABS: HYPOCHROMASIA 1+; MICROCYTOSIS 1+; OVALOCYTES 1+
[2024-03-16 18:57] VITALS: PULSE 117; RESP 20
[2024-03-16] MEDS: ONDANSETRON HCL 4MG/2ML INJ IV ONE (18:58)
[2024-03-17] VITALS (12 sets, daily range): BP systolic 135–168; BP diastolic 68–95; PULSE 96–119; RESP 18–20; TEMP 36.44736–36.6404; O2SAT 96–100
[2024-03-17] MEDS: ONDANSETRON HCL 4MG/2ML INJ IV PRN (00:28)
[2024-03-17] MEDS: PANTOPRAZOLE 40MG DR TABLET PO SCH (00:28)
[2024-03-17] MEDS: ALBUTEROL (0.083%) 2.5MG/3ML NEB HHN NR (00:50)
[2024-03-17 09:42] LABS: HEMATOCRIT. 24.7 % (42.0-52.0); HEMOGLOBIN. 7.6 g/dL (14.0-18.0); MEAN CORPUSCULAR HEMOGLOBIN 24.2 pg (28.0-32.0); MEAN CORPUSCULAR HGB CONC 30.7 g/dL (31.0-37.0); MEAN CORPUSCULAR VOLUME 78.9 fL (80.0-94.0); MEAN PLATELET VOLUME 9.3 fl (7.4-10.4); PLATELET 149 x1000/uL (130-400); RED BLOOD CELL COUNT 3.13 mill/uL (4.7-6.1); RED CELL DISTRIBUTION WIDTH 21.9 % (11.6-14.6); WHITE BLOOD COUNT 4.9 x1000/uL (4.5-11.0)
[2024-03-17 09:47] LABS: DIFFERENTIAL COMMENT 1
[2024-03-17] MEDS: IPRATROPIUM/ALBUTEROL 0.5-3(2.5)MG/3ML NEB HHN SCH (13:41)
[2024-03-17] MEDS ORDERED: PNEUMOCOCCAL 23-VAL P-SAC VAC 0.5ML IM ONE (14:00)
[2024-03-17] MEDS ORDERED: IPRATROPIUM/ALBUTEROL 0.5-3(2.5)MG/3ML NEB HHN PRN (14:00)
[2024-03-17] MEDS: METHYLPREDNISOLONE SOD SUCC 40MG/ML (ACT-O-VIAL) IV SCH (16:38)
[2024-03-17] MEDS: MONTELUKAST SODIUM 10MG TABLET PO SCH (16:38)
[2024-03-17 20:09] LABS: ANISOCYTOSIS 2+; HYPOCHROMASIA 1+; MICROCYTOSIS 1+; PLATELET ESTIMATE NORMAL
[2024-03-17 21:20] LABS: IRON 114 ug/dL (65-175)
[2024-03-17 21:23] LABS: TOTAL IRON BINDING CAPACITY 289 ug/dl (250-425)
[2024-03-18] VITALS (17 sets, daily range): BP systolic 147–165; BP diastolic 65–85; PULSE 74–108; RESP 17–21; TEMP 36.44736–37.00296; O2SAT 94–98
[2024-03-18 01:35] LABS: TROPONIN I HIGH SENSITIVITY 165 ng/L (3.0-53)
[2024-03-18 06:28] LABS: CHLORIDE 105 mEq/L (98-107); POTASSIUM 3.8 mEq/L (3.5-5.1); SODIUM 135 mEq/L (136-145)
[2024-03-18 06:29] LABS: CALCIUM 8.6 mg/dL (8.7-10.4); CARBON DIOXIDE 24 mEq/L (21-32)
[2024-03-18 06:34] LABS: GLUCOSE 147 mg/dL (70-105); UREA NITROGEN BLOOD 8 mg/dL (9-23)
[2024-03-18 08:07] LABS: TROPONIN I HIGH SENSITIVITY 153 ng/L (3.0-53)
[2024-03-18 09:21] LABS: MEAN CORPUSCULAR HEMOGLOBIN 24.6 pg (28.0-32.0); MEAN CORPUSCULAR HGB CONC 30.9 g/dL (31.0-37.0); MEAN CORPUSCULAR VOLUME 79.8 fL (80.0-94.0); MEAN PLATELET VOLUME 9.7 fl (7.4-10.4); PLATELET 115 x1000/uL (130-400); RED BLOOD CELL COUNT 2.86 mill/uL (4.7-6.1); RED CELL DISTRIBUTION WIDTH 21.6 % (11.6-14.6); WHITE BLOOD COUNT 2.3 x1000/uL (4.5-11.0)
[2024-03-18 09:31] LABS: DIFFERENTIAL COMMENT 1
[2024-03-18 09:36] LABS: HEMATOCRIT. 22.8 % (42.0-52.0)
[2024-03-18] MEDS: MAGNESIUM 1 G PREMIX 100 ML IV NR (12:24)
[2024-03-18 12:38] LABS: TROPONIN I HIGH SENSITIVITY 148 ng/L (3.0-53)
[2024-03-18] MEDS: METOPROLOL TARTRATE 5MG/5ML VIAL IV NR (14:06)
[2024-03-18 16:00] LABS: HYPOCHROMASIA 2+; MICROCYTOSIS 2+; PLATELET ESTIMATE NORMAL; TARGET CELLS 1+
[2024-03-18] MEDS: DILTIAZEM HCL 30MG TABLET PO SCH (17:50)
[2024-03-18] MEDS: SPIRONOLACTONE 25MG TABLET PO SCH (17:51)
[2024-03-18] MEDS: FUROSEMIDE 40MG TABLET PO SCH (21:35)
[2024-03-18 22:04] LABS: HEMATOCRIT 24.8 % (42.0-52.0)
[2024-03-19] VITALS (10 sets, daily range): BP systolic 130–161; BP diastolic 79–82; PULSE 87–113; RESP 16–18; TEMP 36.6696–36.89184; O2SAT 96–99
[2024-03-19 07:07] LABS: INR 1.2; PROTHROMBIN TIME 12.7 sec (9.6-11.0)
[2024-03-19 07:09] LABS: HEMATOCRIT. 23.8 % (42.0-52.0); HEMOGLOBIN. 7.5 g/dL (14.0-18.0); MEAN CORPUSCULAR HEMOGLOBIN 25.4 pg (28.0-32.0); MEAN CORPUSCULAR HGB CONC 31.6 g/dL (31.0-37.0); MEAN CORPUSCULAR VOLUME 80.5 fL (80.0-94.0); MEAN PLATELET VOLUME 9.6 fl (7.4-10.4); PLATELET 100 x1000/uL (130-400); RED BLOOD CELL COUNT 2.95 mill/uL (4.7-6.1); RED CELL DISTRIBUTION WIDTH 20.7 % (11.6-14.6); WHITE BLOOD COUNT 2.6 x1000/uL (4.5-11.0)
[2024-03-19 07:10] LABS: CHLORIDE 104 mEq/L (98-107); POTASSIUM 3.9 mEq/L (3.5-5.1); SODIUM 133 mEq/L (136-145)
[2024-03-19 07:14] LABS: CALCIUM 9.1 mg/dL (8.7-10.4); CARBON DIOXIDE 25 mEq/L (21-32)
[2024-03-19 07:19] LABS: DIFFERENTIAL COMMENT 1; GLUCOSE 117 mg/dL (70-105); UREA NITROGEN BLOOD 10 mg/dL (9-23)
[2024-03-19 07:20] LABS: ALANINE AMINOTRANSFERASE 23 IU/L (10-49)
[2024-03-19 07:21] LABS: ALBUMIN 2.8 g/dL (3.2-4.8); ASPARTATE AMINOTRANSFERASE 31 IU/L (<34); BILIRUBIN DIRECT 0.5 mg/dL (<=3.0); VITAMIN B12 SERUM 771 pg/mL (211-911)
[2024-03-19 07:22] LABS: PROTEIN TOTAL 5.2 g/dL (6.0-8.3)
[2024-03-19 07:23] LABS: FERRITIN 14 ng/mL (22-322)
[2024-03-19] MEDS ORDERED: SODIUM BICARBONATE 4% 2.4MEQ/5ML VIAL IV ONE (08:10)
[2024-03-19] MEDS ORDERED: LIDOCAINE HCL 1% 10 MG/ML 10ML VIAL ONE (08:10)
[2024-03-19 11:47] LABS: ANISOCYTOSIS 2+; PLATELET ESTIMATE DECREASED
[2024-03-19 14:52] LABS: BODY FLUID MONOCYTES 12 %
[2024-03-19 15:05] LABS: BODY FLUID RBC 6325 /cu mm (0-2000); BODY FLUID WBC 110 /cu mm (0-200)
[2024-03-19] MEDS: SODIUM CHLORIDE 0.9% 1,000 ML IV SCH (16:45)
[2024-03-19 16:50] LABS: FOLIC ACID (FOLATE) SERUM 3.04 ng/mL (>5.38)
== END 2024-03-19 17:40 | disposition left against medical advice (07) | DRG 280 ==
LOC: ER 15:46 → EDBEDREQ 16:07 → 7WST 16:42 → EDBEDREQ 16:43
PROVIDERS: ADMIT Internal Medicine; ATTEND Internal Medicine
PROC: 30233N1 Transfusion of Nonautologous Red Blood Cells into Peripheral Vein, Percutaneous Approach (ICD-10-PCS; 2024-03-16)
PROC: 0W9G3ZZ Drainage of Peritoneal Cavity, Percutaneous Approach (ICD-10-PCS; principal; 2024-03-19)
DX: K70.30 Alcoholic cirrhosis of liver without ascites (principal); J96.00 Acute respiratory failure, unspecified whether with hypoxia or hypercapnia; I21.4 Non-ST elevation (NSTEMI) myocardial infarction; J44.1 Chronic obstructive pulmonary disease with (acute) exacerbation; I50.33 Acute on chronic diastolic (congestive) heart failure; R18.8 Other ascites; J45.901 Unspecified asthma with (acute) exacerbation; I11.0 Hypertensive heart disease with heart failure; D50.9 Iron deficiency anemia, unspecified; E11.9 Type 2 diabetes mellitus without complications; F10.20 Alcohol dependence, uncomplicated; G40.909 Epilepsy, unspecified, not intractable, without status epilepticus; Z53.29 Procedure and treatment not carried out because of patient's decision for other reasons; F17.210 Nicotine dependence, cigarettes, uncomplicated; Z79.899 Other long term (current) drug therapy
CPT/HCPCS: 36415; 49083; 71045; 76705; 80048; 80076; 82040; 82105; 82248; 82270; 82607; 82728; 82746; 83540; 83550; 83615; 83735; 83880; 84145; 84484; 85014; 85018; 85025; 85044; 86850; 86900; 86920; 88108; 88312; 93005; 93306; 94640; 99291; J0696; J2354; J2405; J2470; J2920; J3475; J3490; P9016